=== PATIENT | male | born 1975 | race Caucasian/White ===

== ENCOUNTER 2020-08-29 11:30 | Day surgery (SDC) | payer OTHER ==
--- NOTE | 2020-08-27 15:36 | RAD REPORT ---
EXAM DESCRIPTION: Justo Kim (2 Views)08/27/2020 3:18 pm CLINICAL HISTORY: Preop for cholecystectomy. Abdominal pain COMPARISON: None FINDINGS: The lungs appear clear of acute infiltrate. The heart is probably upper limits normal siz e IMPRESSION: No acute abnormalities displayed
[2020-08-27 15:42] LABS: Absolute Lymphocytes (CBC) 1.7 K/uL (0.7-4.9); Basophils % 0.7 % (0-1.3); Hematocrit 35.2 % (39.6-49.0); Lymphocytes % 27.9 % (15.3-44.8); MPV 7.4 fL (7.6-11.3)
[2020-08-27 16:09] LABS: ALT/SGPT 25 U/L (12-78); AST/SGOT 20 U/L (15-37); Albumin 3.9 g/dL (3.4-5.0); Alkaline Phosphatase 84 U/L (45-117); Amylase 80 U/L (25-115); BUN Blood Urea Nitrogen 16 mg/dL (7-18); Bicarbonate 30 mmol/L (21-32); Bilirubin Direct 0.2 mg/dL (0-0.2); Bilirubin Total 0.8 mg/dL (0.2-1.0); Glucose Level 92 mg/dL (74-106); Lipase 102 U/L (73-393); Potassium 3.8 mmol/L (3.5-5.1); Sodium Level 140 mmol/L (136-145)
[2020-08-27 16:34] LABS: Blood Morphology Comment NOTED (NOT SEEN); Hypochromasia 1+; Platelet Estimate ADEQ; White Blood Cell Scan OK (OK)
--- NOTE | 2020-08-28 07:06 | EKG ---
Test Date: 2020-08-27 Test Time: 14:56:39 Senior Controls Engineer: [place] MEASUREMENT RESULTS: Intervals: Rate: 42 VA: 162 QRSD: 112 QT: 482 QTc: 402 [place]: P: 30 VA: 162 QRS: 33 T: 19 INTERPRETIVE STATEMENTS: Marked sinus bradycardia Abnormal ECG No previous ECG available for comparison Electronically Signed On 08-28-20 07:03:55 CDT by Rios Berumen
[2020-08-29] MEDS ORDERED: Ringers Lactate 1,000 ML IV ONE (11:55)
--- OUTSIDE RECORDS SUMMARY | 2020-08-29 11:56 | XMS REPORT | Continuity of Care Document ---
:1975 Author Organization [facility] [employer]eng [employer] Care Team Providers Name Role Phone [facility] [employer] Information [employer] [facility] Unavailable Un available Problems Problem Status Onset Classification Date Comments Sourc e Date Reported 60429, EPIGASTRIC Active 08/14/20 [facility] PAIN 19 City [address] E66.01 K28.9 Active 08/14/20 [facility] K21.9 19 City Other 10/27/20 05/09/2019 [facility] postprocedural 18 City complications and disorders of digestive system 14454, GASTRIC Active 09/22/20 [facility] morial ULCER 18 City ACUTE GASTRIC Active 08/17/20 [facility] orial ULCER WITH 18 City HEMORRHAGE Z98.84 - BARIATRIC Active 08/04/20 [facility] OPID SURGERY STATUS 17 Kate and R10.9 98516- MORBID Active 10/13/20 [facility] orial OBESITY 16 [place] [address], E66.01 Active 05/28/[address] [facility] MORBID OBESITY 16 [place] Morbid obesity Active Problem 05/07/2020 [facility] edical (disorder) Group,[facility] Neck pain Active Problem 05/07/2020 Medica l (finding) Group,[facility] Sleep apnea Active Problem 05/07/2020 Medi ahsan (finding) Group,[facility] Gastrojejunal 05/09/2019 [facility] morial ulcer, unspecified C ity as acute or chronic, without hemorrhage or perforation Gastro-esophageal 05/09/2019 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 Amoxicillin Notes: (Same Inactive as: Amoxil) 2018 [facility] Clarithromycin Notes: (Same Inactive As: Biaxin) 2018 [facility] Acetaminophen Notes: Do not Inactive exceed 4 2019 [facility] gm/day. (Same City as: Tylenol) Protonix Notes: For IV Inactive push 2018 [facility] with 10 ml 0.9% sodium chloride and push over 2 minutes. (Same as: Protonix) Ofirmev Notes: Infuse No Longer over 15 Active 2018 [facility] minutes Do City not exceed 4gm/day of acetaminophen MEDICATION WASTE Product Size: 1000 mg Product Wasted: ___ mg Lovenox Notes: (Same No Longer as: Lovenox) Active 2018 [facility] Ketorolac 4 days No Longer MEDICATION Active 2018 [facility] WASTE [facility] Product Size: 30 mg Product Wasted: ___ mg 72 HR Scopolamine Notes: Change No Longer 0.0139 MG/HR patch every 72 Active 2018 [facility] Transdermal Patch hours (Same City as: Transderm-Scop ) ondansetron (ANES) Route: IV, Inactive H Drug form: 2018 [facility] INJ, ONCE, [facility] Stop date: 10/09/19 9:27:00 [employer] neostigmine (ANES) Route: IV, Inactive M H Drug form: 2018 [facility] INJ, ONCE, [facility] Stop date: 10/09/19 9:27:00 [employer] sucralfate 1 g oral 1 gm = 1 tab, Active tablet PO, Before 2018 [facility] Meals & [facility] Bedtime, crush and mix with 5-10mL water, # 56 tab, 0 Refill(s) clarithromycin 500 500 mg, PO, Active H mg oral tablet [id number], X [address] [facility] orial day, # 28 tab, City 0 Refill(s) amoxicillin 500 mg 1,000 mg, PO, Active oral capsule Q12H, X 14 2018 [facility] day, # 56 tab, City 0 Refill(s) tramadol 50 mg, PO, No Longer hydrochloride 50 MG Q4H, PRN Pain Active 2018 [facility] Oral Tablet Score 4-6, X 3 City day, # 18 tab, 0 Refill(s) omeprazole 40 mg 40 mg = 1 cap, Active oral delayed PO, Daily, # 2019 [facility] release capsule 30 cap, 1 City Refill(s) Calcium Chloride 1,000 mL, No Longer 0.0014 MEQ/ML / Rate: 150 Active 2018 [facility] Potassium Chloride ml/hr, Infuse City 0.004 MEQ/ML / over: 6.7 hr, Sodium Chloride Route: IV, 0.103 MEQ/ML / Dosing Weight Sodium Lactate 127.273 kg, 0.028 MEQ/ML Total Volume: Injectable Solution 1,000, Start date: 10/09/19 9:21:00 [employer], Duration: 30 day, Stop date: 11/08/19 9:20:00 [employer], 2.64, m2, 0 tramadol Notes: Not to No Longer hydrochloride 50 MG exceed Active 2018 [facility] Oral Tablet 400mg/day. City (Same As: Ultram) Dilaudid Notes: Same as No Longer Dilaudid Active 2018 [facility] Labetalol Notes: (Same No Longer as: Normodyne, Active 2018 [facility] Trandate) Push City over 2 minutes Give bolus over 2-3 minutes. Hydralazine Notes: (Same No Longer as: Active 2018 [facility] Apresoline) [facility] Push over 5 minutes Ondansetron Notes: (Same No Longer as: Zofran) Active 2018 [facility] MEDICATION City WASTE Product Size: 4 mg Product Wasted: ___ mg Promethazine 12.5 mg, 50 No Longer mL, Route: Active 2018 [facility] IVPB, Drug City form: SOLN, Q6H, Dosing Weight 127.273, kg, PRN Nausea & Vomiting, Start date: 10/09/19 9:21:00 [employer], Duration: 30 day, Stop date: 11/08/19 9:20:00 [employer], 0 ePHEDrine (ANES) Route: IV, Inactive Drug form: 2019 [facility] INJ, ONCE, City Stop date: 10/09/19 9:01:00 [employer] glycopyrrolate Route: IV, Inactive (ANES) Drug form: 2018 [facility] INJ, ONCE, City Stop date: 10/09/19 8:36:00 [employer] ceFAZolin (ANES) Route: IV, Inactive Drug form: 2018 [facility] INJ, ONCE, City Stop date: 10/09/19 8:25:00 [employer] dexamethasone Route: IV, Inactive (ANES) Drug form: 2018 [facility] INJ, ONCE, City Stop date: 10/09/19 8:25:00 [employer] acetaminophen Route: IV, Inactive (ANES) Drug form: 2018 [facility] INJ, ONCE, City Stop date: 10/09/19 8:25:00 [employer] midazolam (ANES) Route: IV, Inactive Drug form: 2018 [facility] SOLN, RIGO, City Stop date: 10/09/19 8:20:00 [employer] fentaNYL (ANES) Route: IV, Inactive Drug form: 2018 [facility] INJ, ONCE, City Stop date: 10/09/19 8:20:00 [employer] lidocaine (ANES) Route: IV, Inactive Drug form: 2018 [facility] INJ, ONCE, City Stop date: 10/09/19 8:20:00 [employer] propofol (ANES) Route: IV, Inactive Drug form: 2018 [facility] INJ, ONCE, City Stop date: 10/09/19 8:20:00 [employer] rocuronium (ANES) Route: IV, Inactive Drug form: 2018 [facility] INJ, ONCE, City Stop date: 10/09/19 8:20:00 [employer] famotidine (ANES) Route: IV, Inactive Drug form: 2018 [facility] INJ, ONCE, City Stop date: 10/09/19 8:20:00 [employer] Morphine Notes: (Same Inactive as:MORPhine 2018 [facility] Flumazenil Notes: (Same Inactive as: Romazicon) 2018 [facility] Naloxone Notes: Same as Inactive Narcan 2018 [facility] Ondansetron Notes: (Same Inactive as: Zofran) 2018 [facility] MEDICATION City WASTE Product Size: 4 mg Product Wasted: ___ mg Lactated Ringers Route: IV, Inactive Injection IV (ANES) Total Volume: 2018 [facility] 1000 mL 1,000, Start City date: 10/09/19 7:35:00 [employer], Stop date: 10/09/19 8:35:00 [employer] ceFAZolin + sterile Notes: (Same No Longer 10/09 water 30 mL As: Ancef, Active 2018 [facility] Kefzol) [facility] MEDICATION WASTE Product Size: 1000 mg Product Wasted: ___ mg multivitamin Daily, 0 No Longer Refill(s) Active 2019 [facility] Stool Softener with PO, Bedtime, 0 Active 10/02 Laxative Refill(s) 2019 [facility] Vitamin B Complex PO, Daily, 0 No Longer oral capsule Refill(s) Active 2018 [facility] Calcium Citrate PO, BID, 0 No Longer Refill(s) Active 2018 [facility] Sucralfate = 10 ml, PO, No Longer Before Meals & Active 2018 [facility] Bedtime, # 200 City ml, 0 Refill(s) Cetirizine See Active Instructions, 2017 [facility] Daily, 0 City Refill(s) Azithromycin See Active Instructions, 2018 [facility] PO Daily, 0 City Refill(s) MethylPREDNISolone See Active Dose Pack 4 mg oral Instructions, 2018 [facility] tablet PO, Daily, Use [facility] as directed on label., # 1 Pack, 0 Refill(s) Nexium See Active Instructions, 2018 [facility] PO Daily, 0 City Refill(s) benzonatate See Active Instructions, 2018 [facility] PO TID, 0 City Refill(s) tramadol 50 mg = 1 tab, Active hydrochloride 50 MG PO, Q4H, PRN 2016 [facility] Oral Tablet Pain Score [facility] 1-3, X 7 day, # 42 tab, 0 Refill(s) tramadol Notes: Not to Inactive hydrochloride 50 MG exceed 2016 [facility] Oral Tablet 400mg/day. City (Same As: [facility]) Enoxaparin Notes: (Same Inactive as: Lovenox) 2015 [facility] Ketorolac 4 days No Longer MEDICATION Active 2015 [facility] WASTE City Product Size: 30 mg Product Wasted: ___ mg ondansetron (ANES) Route: IV, Inactive H Drug form: 2015 [facility] INJ, ONCE, City Stop date: 10/26/16 17:00:00 [employer] neostigmine (ANES) Route: IV, Inactive H Drug form: 2015 [facility] INJ, ONCE, City Stop date: 10/26/16 17:00:00 [employer] Dilaudid Notes: Same as No Longer Dilaudid Active 2015 [facility] Ondansetron Notes: (Same No Longer as: Zofran) Active 2015 [facility] MEDICATION City WASTE Product Size: 4 mg Product Wasted: ___ mg Promethazine 12.5 mg, 50 No Longer mL, Route: Active 2015 [facility] IVPB, Drug City form: SOLN, Q4H, Dosing Weight 176.364, kg, PRN Nausea & Vomiting, Start date: 10/26/16 16:34:00 [employer], Duration: 30 day, Stop date: 11/25/16 16:33:00 [employer] Lactated Ringers 1,000 mL, No Longer 1,000 mL Rate: 80 Active 2015 [facility] over: 12.5 hr, Route: IV, Dosing Weight 176.364 kg, Total Volume: 1,000, Priority: STAT, Start date: 10/26/16 16:34:00 [employer], Duration: 30 day, Stop date: 11/25/16 16:33:00 [employer] Calcium Chloride 1,000 mL, No Longer 0.0014 MEQ/ML / Rate: 125 Active 2015 [facility] Potassium Chloride ml/hr, Infuse [facility] 0.004 MEQ/ML / over: 8 hr, Sodium Chloride Route: IV, 0.103 MEQ/ML / Dosing Weight Sodium Lactate 176.364 kg, 0.028 MEQ/ML Total Volume: Injectable Solution 1,000, Start date: 10/26/16 16:34:00 [employer], Stop date: 10/27/16 16:33:00 [employer] metoclopramide Route: IV, Inactive (ANES) Drug form: 2015 [facility] INJ, ONCE, City Stop date: 10/26/16 16:22:00 [employer] famotidine (ANES) Route: IV, Inactive Drug form: 2015 [facility] INJ, ONCE, City Stop date: 10/26/16 16:22:00 [employer] propofol (ANES) Route: IV, Inactive Drug form: 2015 [facility] INJ, ONCE, City Stop date: 10/26/16 15:27:00 [employer] glycopyrrolate Route: IV, Inactive (ANES) Drug form: 2015 [facility] INJ, ONCE, City Stop date: 10/26/16 15:27:00 [employer] fentaNYL (ANES) Route: IV, Inactive Drug form: 2015 [facility] INJ, ONCE, City Stop date: 10/26/16 15:27:00 [employer] lidocaine (ANES) Route: IV, Inactive Drug form: 2015 [facility] INJ, ONCE, City Stop date: 10/26/16 15:27:00 [employer] succinylcholine Route: IV, Inactive (ANES) Drug form: 2015 [facility] INJ, ONCE, City Stop date: 10/26/16 15:27:00 [employer] ENG[employer] ceFAZolin (ANES) Route: IV, Inactive Drug form: 2015 [facility] INJ, ONCE, City Stop date: 10/26/16 15:17:00 [employer] rocuronium (ANES) Route: IV, Inactive Drug form: 2015 [facility] INJ, ONCE, City Stop date: 10/26/16 15:17:00 [employer] midazolam (ANES) Route: IV, Inactive Drug form: 2015 [facility] SOLN, ONCE, City Stop date: 10/26/16 15:07:00 [employer] Meperidine Notes: (Same Inactive As: Demerol) 2015 [facility] Ondansetron Notes: (Same Inactive as: Zofran) 2015 [facility] MEDICATION City WASTE Product Size: 4 mg Product Wasted: ___ mg Promethazine Notes: Do not Inactive 10/26[facility] give IV push. 2015 [facility] (Same as: [facility] Phenergan) Naloxone Notes: Same as Inactive Narcan 2015 [facility] Flumazenil Notes: (Same Inactive as: Romazicon) 2015 [facility] Morphine Notes: (Same Inactive as:MORPhine 2015 [facility] Sulfate) [facility] Hydromorphone Notes: Same as Inactive Dilaudid 2015 [facility] Hydralazine Notes: (Same Inactive as: 2015 [facility] Apresoline) [facility] Push over 5 minutes Labetalol Notes: (Same Inactive as: Normodyne, 2015 [facility] Trandate) Push [facility] over 2 minutes Give bolus over 2-3 minutes. 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 1000 mL INJ Route: IV, Inactive (ANES) Total Volume: 2015 [facility] 1,000, Start [facility] date: 10/26/16 14:32:00 [employer] SYSTEM[employer]ER, Stop date: 10/26/16 15:32:00 [employer] Ancef Notes: Same No Longer as: Ancef Active 2015 [facility] lisinopril 5 mg 5 mg = 1 tab, Active oral tablet PO, Daily, # 2016 [facility] 30 tab, 2 [facility] Refill(s) Aspirin 81 MG 81 mg = 1 tab, Active Enteric Coated PO, Daily, # 2016 [facility] Tablet 30 tab, 2 [facility] Refill(s) Aspirin 81 MG Notes: Do not Inactive Enteric Coated crush or chew. 2016 Me morial Tablet (Same As: [facility] Ecotrin) Lasix Notes: (Same Inactive as: Lasix) 2015 [facility] Dulcolax Laxative 5 mg, 1 tab, No Longer Route: PO, Active 2015 [facility] Drug form: [facility] ECTAB, Q6H, Dosing Weight 183.182, kg, PRN Constipation, Start date: 06/24/16 20:00:00 CDT, Duration: 30 day, Stop date: 07/24/16 19:59:00 CDT Milk of Magnesia Notes: (Same No Longer as: Milk of Active 2015 [facility] Magnesia, MOM) [facility] Lisinopril Notes: (Same No Longer as: Prinivil, Active 2015 [facility] Zestril) [facility] Acetaminophen Notes: Do not No Longer exceed 4 Active 2015 [facility] gm/day. (Same City as: Tylenol) acetaminophen-codei Notes: Do not No Longer 06/14 ne #3 exceed 4gm/day Active 2015 [facility] acetaminophen. (Same as: Tylenol with Codeine # 3) Calcium Gluconate Notes: WASTE: No Longer F/P - Sink; E Active 2015 [facility] Trash Bin potassium phosphate Notes: (Same No Longer 06/24 + sodium chloride as: K [facility] [address] [facility] [address] 250 mL Phosphate.) 1 C ity mMol phoshate has 1.47 mEq potassium Infuse over 4 hours potassium chloride Notes: (Same No Longer as: Potassium Active 2015 [facility] Chloride) [facility] potassium Notes: (Same No Longer phosphate-sodium as: [facility] [address] [facility] 250 Neutra-Phos) [facility] mg-278 mg-164 mg Each 1.25 gm oral powder pkt has 250mg phosphorous. Mix w/2.5oz water and stir. sodium phosphate + 30 mmol, 10 No Longer sodium chloride mL, Route: Active [address] [facility] 0.9% INJ 250 mL IVPB, PRN, [facility] Dosing Weight 183.182, kg, PRN Abnormal Lab Result, For NON-ICU Patients Only., Start date: 06/24/16 4:15:00 CDT, Duration: 30 day, Stop date: 07/24/16 4:14:00 CDT Magnesium Sulfate Notes: WASTE: No Longer F/P - Sink; E Active 2015 [facility] Magnesium Oxide Notes: (Same No Longer H as: Mag-Ox Active 2015 [facility] 400) Magnesium City oxide [id number] elemental magnesium Dose=____mg magnesium oxide (___mg elemental magnesium) heparin Notes: porcine No Longer heparin Active 2015 [facility] Notes: Infuse No Longer over 15 Active 2015 [facility] minutes Do City not exceed 4gm/day of acetaminophen MEDICATION WASTE Product Size: 1000 mg Product Wasted: ___ mg Zofran Notes: (Same No Longer as: Zofran) Active 2015 [facility] MEDICATION City WASTE Product Size: 4 mg Product Wasted: ___ mg Ondansetron Notes: (Same No Longer as: Zofran) Active 2015 [facility] MEDICATION City WASTE Product Size: 4 mg Product Wasted: ___ mg Promethazine Notes: Do not No Longer give IV push. Active 2015 [facility] (Same as: [facility] Phenerg) Calcium Chloride 1,000 mL, No Longer 0.0014 MEQ/ML / Rate: 125 Active 2015 [facility] al Potassium Chloride ml/hr, Infuse [facility] 0.004 MEQ/ML / over: 8 hr, Sodium Chloride Route: IV, 0.103 MEQ/ML / Dosing Weight Sodium Lactate 183.182 kg, 0.028 MEQ/ML Total Volume: Injectable Solution 1,000, Start date: 06/23/16 12:02:00 CDT, Stop date: 06/24/16 6:00:00 CDT Sodium Chloride 2,000 mL, Inactive 0.154 MEQ/ML 1,000 ml/hr, 2015 [facility] Injectable Solution Infuse Over: 2 City hr, Route: IV, 2,000, Drug form: INJ, ONCE, Priority: STAT, Dosing Weight 183.182 kg, Start date: 06/23/16 10:26:00 CDT, Duration: 1 doses or times, Stop date: 06/23/16 10:26:00 CDT chlorhexidine Notes: (Same Inactive gluconate 1.2 MG/ML As: Peridex) 2015 [facility] [place] [facility] Lactated Ringers 1,000 mL, No Longer 1,000 mL Rate: 125 Active 2015 [facility] ml/hr, Infuse [facility] over: 8 hr, Route: IV, Dosing Weight 183.182 kg, Total Volume: 1,000, Start date: 06/23/16 8:27:00 CDT, Duration: 30 day, Stop date: 07/23/16 8:26:00 CDT chlorhexidine Notes: (Same Inactive gluconate 1.2 MG/ML As: Peridex) 2015 [facility] [place] [facility] Ancef Notes: Same No Longer as: Ancef Active 2015 [facility] carBAMazepine 200 200 mg = 1 Active 06[facility]09[facility] mg oral tablet tab, PO, 2015 [facility] Daily, 0 [facility] Refill(s) tramadol 50 mg = 1 tab, Active hydrochloride 50 MG PO, Q8H, PRN 2015 [facility] Oral Tablet Pain, # 60 [facility] tab, 0 Refill(s) baclofen 10 mg oral 10 mg = 1 tab, Active 06/09 tablet PO, BID, 0 2015 [facility] Refill(s) [facility] Allergies, Adverse Reactions, Alerts Substance Category Reaction Severity Reaction Status Date Comments S ource type Reported No Known Assertion Drug Medication allergy Medic al Allergies Group Immunizations No Data Provided for This Section Results Order Name Results Value Reference Date Interpretation Comments Shira rce Range CHEM PANEL Glucose Lvl 88 70 - 99 10/10 [facility] CHEM PANEL BUN 11 7 - 22 10/10 [facility] CHEM PANEL Creatinine 0.92 0.50 - 10/10 Lvl 1.40 [facility] CHEM PANEL Sodium Lvl 141 135 - 145 10/10 [facility] CHEM PANEL Potassium 3.8 3.5 - 5.1 10/10 Lvl [facility] CHEM PANEL Chloride Lvl 106 95 - 109 10/10 [facility] CHEM PANEL CO2 27 24 - 32 10/10 [facility] CHEM PANEL Calcium Lvl 8.3 8.5 - 10.5 10/10 [facility] CHEM PANEL eGFR 101 10/10 Result Comment: The [facility] eGFR is City calculated using the CKD-EPI formula. In most young, healthy individuals the eGFR will be >90 mL/min/1.73m2 . The eGFR declines with age. An eGFR of 60-89 may be normal in some populations, particularly the elderly, for whom the CKD-EPI formula has not been extensively validated. Use of the eGFR is not recommended in the following populations:< br/>
Yuliana viduals with unstable creatinine concentration s, including patients and those with serious co-morbid conditions.<b r/>
Patie nts with extremes in muscle mass or diet.

The data above are obtained from the National Kidney Disease Education Program (NKDEP) which additionally recommends that when the eGFR is used in patients with extremes of body mass index for purposes of drug dosing, the eGFR should be multiplied by the estimated BMI. CHEM PANEL AGAP 11.8 10.0 - 10/10 MH 20.0 [facility] HEMATOLOGY Plt Morph Normal Normal 10/10 (10/10/19 6:29 AM) /2018 [facility] HEMATOLOGY Segs 68.8 45.0 - 10/10 75.0 /2018 [facility] HEMATOLOGY Lymphocytes 19.8 20.0 - 10/10 MH 40.0 [facility] HEMATOLOGY Monocytes 10.3 2.0 - 12.0 10/10 [facility] HEMATOLOGY Eosinophils 0.8 0.0 - 4.0 10/10 [facility] HEMATOLOGY Basophils 0.3 0.0 - 1.0 10/10 [facility] HEMATOLOGY Neutrophils 5.2 1.5 - 8.1 10/10 # /2018 [facility] HEMATOLOGY Lymphocytes 1.5 1.0 - 5.5 10/10 # /2018 [facility] HEMATOLOGY Monocytes # 0.8 0.0 - 0.8 10/10 [facility] HEMATOLOGY Eosinophils 0.1 0.0 - 0.5 10/10 # /2018 [facility] HEMATOLOGY Microcyte 3+ None Seen 10/10 *NA* /2018 [facility] (10/10/19 6:29 AM) [facility] HEMATOLOGY Hypochrom 1+ None Seen 10/10 (10/10/19 6:29 AM) [facility] HEMATOLOGY Polychrom Moderate None Seen 10/10 *ABN* /2018 [facility] (10/10/19 6:29 AM) [facility] HEMATOLOGY WBC 7.6 3.7 - 10.4 10/10 [facility] HEMATOLOGY RBC 4.76 4.70 - 10/10 MH 6. [facility] HEMATOLOGY Hgb 9.3 14.0 - 10/10 18.0 /2018 [facility] [facility] HEMATOLOGY Hct 29.6 42.0 - 10/10 MH 54.0 /2018 [facility] HEMATOLOGY MCV 62.2 80.0 - 10/10 94.0 /2018 [facility] HEMATOLOGY MCH 19.6 27.0 - 10/10 MH 31.0 /2018 [facility] HEMATOLOGY MCHC 31.5 32.0 - 10/10 36.0 /2018 [facility] HEMATOLOGY RDW 19.7 11.5 - 10/10 14.5 [facility] HEMATOLOGY Platelet 233 133 - 450 10/10 /2018 [facility] HEMATOLOGY MPV 8.4 7.4 - 10.4 10/10 [facility] URINE AND UA Color Yellow Yellow 10/02 STOOL *NA* /2018 [facility] (10/02/19 4:44 PM) [facility] URINE AND UA Turbidity Clear Clear 10/02 STOOL (10/02/19 4:44 PM) /2018 [facility] URINE AND UA Spec Grav 1.020 <=1.030 10/02 STOOL [facility] URINE AND UA pH 6.0 5.0 - 8.0 10/02 STOOL /2018 [facility] URINE AND UA Protein Negative Negative 10/02 STOOL mg/dL mg/dL /2018 [facility] URINE AND UA Glucose Negative Negative 10/02 STOOL mg/dL mg/dL /2018 [facility] URINE AND UA Bili Negative Negative 10/02 STOOL *NA* /2018 [facility] (10/02/19 4:44 PM) [facility] URINE AND UA Blood Negative Negative 10/02 STOOL (10/02/19 4:44 PM) /2018 [facility] URINE AND UA Nitrite Negative Negative 10/02 STOOL (10/02/19 4:44 PM) /2018 [facility] URINE AND UA Leuk Est Negative Negative 10/02 STOOL (10/02/19 4:44 PM) /[facility] WBC 1 0 - 5 10/02 STOOL [facility] URINE AND UA RBC <1 0 - 2 10/02 STOOL [facility] URINE AND UA Bacteria Occasional None Seen 10/02 STOOL /HPF /HPF /2018 [facility] URINE AND UA Mucus Few /LPF None Seen 10/02 STOOL /LPF /2018 [facility] URINE AND UA Sq Epi None Seen 10/02 STOOL /2018 [facility] URINE AND UA Ketones Negative 10/02 STOOL [facility] URINE AND UA <=1.0 0.1 - 1.0 10/02 STOOL Urobilinogen mg/dL [facility] BLOOD BANK ABO/Rh O POS 10/02 RESULTS [facility] BLOOD BANK Antibody Negative 10/02 RESULTS Scrn (10/02/19 4:39 PM) [facility] CHEM PANEL Glucose Lvl 69 70 - 99 10/02 [facility] CHEM PANEL BUN 18 7 - 22 10/02 [facility] CHEM PANEL Creatinine 0.95 0.50 - 10/02 Lvl 1.40 [facility] CHEM PANEL Sodium Lvl 143 135 - 145 10/02 [facility] CHEM PANEL Potassium 4.6 3.5 - 5.1 10/02 Lvl [facility] CHEM PANEL Chloride Lvl 107 95 - 109 10/02 [facility] CHEM PANEL CO2 31 24 - 32 10/02 [facility] CHEM PANEL Calcium Lvl 9.0 8.5 - 10.5 10/02 [facility] CHEM PANEL Albumin Lvl 4.1 3.5 - 5.0 10/02 [facility] CHEM PANEL AST 17 0 - 37 10/02 [facility] CHEM PANEL eGFR 97 10/02 [facility] Comment: [facility] eGFR is City calculated using the CKD-EPI formula. In most young, healthy individuals the eGFR will be >90 mL/min/1.73m2 . The eGFR declines with age. An eGFR of 60-89 may be normal in some populations, particularly the elderly, for whom the CKD-EPI formula has not been extensively validated. Use of the eGFR is not recommended in the following populations:< br/>
Yuliana viduals with unstable creatinine concentration s, including patients and those with serious co-morbid conditions.<b r/>
Patie nts with extremes in muscle mass or diet.

The data above are obtained from the National Kidney Disease Education Program (NKDEP) which additionally recommends that when the eGFR is used in patients with extremes of body mass index for purposes of drug dosing, the eGFR should be multiplied by the estimated BMI. CHEM PANEL Total 7.9 6.4 - 8.4 10/02 MH Protein [facility] CHEM PANEL ALT 23 0 - 65 10/02 [facility] CHEM PANEL Alk Phos 80 39 - 136 10/02 [facility] CHEM PANEL Bili Total 1.0 0.2 - 1.3 10/02 [facility] CHEM PANEL AGAP 9.6 10.0 - 10/02 MH 20.0 [facility] CHEM PANEL B/C Ratio 19 6 - 25 10/02 [facility] CHEM PANEL Globulin 3.8 2.7 - 4.2 10/02 [facility] CHEM PANEL A/G Ratio 1.1 0.7 - 1.6 10/02 [facility] CHEM PANEL Vit B1 Lvl 123.4 66.5 - 10/02 Result (Bariatric) 200.0 /2018 Comment: This Memori al test was City developed and its performance characteristi cs
determ ined by [facility]. It has not been cleared or
approv ed by the Food and Drug Administratio n.
Perfor med At: [facility] [place]
[id number], [place] [id number]<br/ >Carlos Rainey MD Ph:[phone] CHEM PANEL Vitamin D, 31.1 30.0 - 10/02 25-OH, Total 100.0 [facility] HEMATOLOGY WBC 5.4 3.7 - 10.4 10/02 [facility] HEMATOLOGY RBC 5.50 4.70 - 10/02 MH 6.10 [facility] HEMATOLOGY Hgb 10.8 14.0 - 10/02 MH 18.0 [facility] HEMATOLOGY Hct 34.7 42.0 - 10/02 MH 54.0 [facility] HEMATOLOGY MCV 63.2 80.0 - 10/02 MH 94.0 [facility] HEMATOLOGY MCH 19.7 27.0 - 10/02 MH 31.0 [facility] HEMATOLOGY MCHC 31.2 32.0 - 10/02 MH 36.0 [facility] HEMATOLOGY RDW 21.0 11.5 - 10/02 MH 14.5 [facility] HEMATOLOGY Platelet 340 133 - 450 10/02 [facility] HEMATOLOGY MPV 8.4 7.4 - 10.4 10/02 [facility] HEMATOLOGY PT 13.0 12.0 - 10/02 MH 14.7 /2018 [facility] HEMATOLOGY PTT 33.9 22.9 - 10/02 MH 35.8 /2018 [facility] HEMATOLOGY INR 1.00 0.85 - 10/02 MH 1.17 /2018 [facility] HEMATOLOGY Segs 61.2 45.0 - 10/02 MH 75.0 /2018 [facility] HEMATOLOGY Lymphocytes 22.6 20.0 - 10/02 MH 40.0 /2018 [facility] HEMATOLOGY Monocytes 10.3 2.0 - 12.0 10/02 /2018 [facility] HEMATOLOGY Eosinophils 4.8 0.0 - 4.0 10/02 [facility] HEMATOLOGY Basophils 1.1 0.0 - 1.0 10/02 [facility] HEMATOLOGY Neutrophils 3.3 1.5 - 8.1 10/02 # /2018 [facility] HEMATOLOGY Lymphocytes 1.2 1.0 - 5.5 10/02 /2018 [facility] HEMATOLOGY Monocytes # 0.6 0.0 - 0.8 10/02 [facility] HEMATOLOGY Eosinophils 0.3 0.0 - 0.5 10/02 # /2019 [facility] HEMATOLOGY Basophils # 0.1 0.0 - 0.2 10/02 [facility] HEMATOLOGY Anisocyte 1+ None Seen 10/02 *ABN* /2018 [facility] (10/02/19 4:39 PM) [facility] HEMATOLOGY Microcyte 2+ None Seen 10/02 *ABN* /2018 [facility] (10/02/19 4:39 PM) [facility] HEMATOLOGY Hypochrom 1+ None Seen 10/02 (10/02/19 4:39 PM) [facility] HEMATOLOGY Schistocyte 1-3 per HPF None Seen 10/02 (10/02/19 4:39 PM) /2018 [facility] CHEM PANEL eGFR 89 10/27 Result Comment: [facility] eGFR is City calculated using the CKD-EPI formula. In most young, healthy individuals the eGFR will be >90 mL/min/1.73m2 . The eGFR declines with age. An eGFR of 60-89 may be normal in some populations, particularly the elderly, for whom the CKD-EPI formula has not been extensively validated. Use of the eGFR is not recommended in the following populations:< br/>
Yuliana viduals with unstable creatinine concentration s, including patients and those with serious co-morbid conditions.<b r/>
Patie nts with extremes in muscle mass or diet.

The data above are obtained from the National Kidney Disease Education Program (NKDEP) which additionally recommends that when the eGFR is used in patients with extremes of body mass index for purposes of drug dosing, the eGFR should be multiplied by the estimated BMI. CHEM PANEL AGAP 16.2 10.0 - 12 MH 20.0 [facility] CHEM PANEL CO2 26 24 - 32 12 [facility] CHEM PANEL Creatinine 1.03 0.50 - 10/27 MH Lvl 1.40 /2015 [facility] CHEM PANEL BUN 11 7 - 22 10/27 [facility] CHEM PANEL Glucose Lvl 116 70 - 99 10/27 [facility] CHEM PANEL Calcium Lvl 8.4 8.5 - 10.5 10/27 [facility] CHEM PANEL Chloride Lvl 102 95 - 109 10/27 [facility] CHEM PANEL Potassium 4.2 3.5 - 5.1 10/27 MH Lvl /2015 [facility] CHEM PANEL Sodium Lvl 140 135 - 145 10/27 [facility] HEMATOLOGY Platelet 237 133 - 450 10/27 [facility] HEMATOLOGY MPV 7.1 7.4 - 10.4 10/27 [facility] HEMATOLOGY RDW 13.2 11.5 - 10/27 MH 14.5 [facility] HEMATOLOGY MCHC 34.0 32.0 - 10/27 MH 36.0 [facility] HEMATOLOGY Hct 40.6 42.0 - 10/27 MH 54.0 [facility] HEMATOLOGY Hgb 13.8 14.0 - 10/27 MH 18.0 [facility] HEMATOLOGY MCH 28.3 27.0 - 10/27 MH 31.0 /2015 [facility] HEMATOLOGY MCV 83.2 80.0 - 10/27 MH 94.0 [facility] HEMATOLOGY WBC 10.9 3.7 - 10.4 10/27 [facility] HEMATOLOGY RBC 4.88 4.70 - 10/27 MH 6.10 /2015 [facility] HEMATOLOGY PTT 30.7 22.9 - 10/27 MH 35.8 /2015 [facility] HEMATOLOGY PT 14.9 12.0 - 10/27 MH 14.7 [facility] HEMATOLOGY INR 1.15 0.85 - 12 MH 1.17 /2015 [facility] HEMATOLOGY Lymphocytes 0.7 1.0 - 5.5 10/27 MH # /2016 [facility] HEMATOLOGY Segs-Bands # 9.6 1.5 - 8.1 10/27 MH /2015 [facility] HEMATOLOGY Monocytes # 0.5 0.0 - 0.8 10/27 MH /2015 [facility] HEMATOLOGY Segs 88.8 45.0 - 10/27 MH 75.0 /2016 [facility] HEMATOLOGY Lymphocytes 6.9 20.0 - 10/27 MH 40.0 /2016 [facility] HEMATOLOGY Monocytes 4.1 2.0 - 12.0 10/27 /2015 [facility] HEMATOLOGY Basophils 0.2 0.0 - 1.0 10/27 /2015 [facility] BLOOD BANK Antibody Negative 10/26 RESULTS Scrn (10/26/16 1:18 PM) /2015 [facility] BLOOD BANK ABO/Rh O POS 10/26 RESULTS /2015 [facility] CHEM PANEL eGFR 82 10/26 Result Comment: [facility] eGFR is City calculated using the CKD-EPI formula. In most young, healthy individuals the eGFR will be >90 mL/min/1.73m2 . The eGFR declines with age. An eGFR of 60-89 may be normal in some populations, particularly the elderly, for whom the CKD-EPI formula has not been extensively validated. Use of the eGFR is not recommended in the following populations:< br/>
Yuliana viduals with unstable creatinine concentration s, including patients and those with serious co-morbid conditions.<b r/>
Patie nts with extremes in muscle mass or diet.

The data above are obtained from the National Kidney Disease Education Program (NKDEP) which additionally recommends that when the eGFR is used in patients with extremes of body mass index for purposes of drug dosing, the eGFR should be multiplied by the estimated BMI. CHEM PANEL AST 33 0 - 37 10/26 /2015 [facility] CHEM PANEL Creatinine 1.10 0.50 - 10/26 MH Lvl 1.40 /2015 [facility] CHEM PANEL ALT 52 0 - 65 10/26 [facility] CHEM PANEL CO2 21 24 - 32 10/26 [facility] CHEM PANEL Glucose Lvl 76 70 - 99 10/26 [facility] CHEM PANEL BUN 12 7 - 22 10/26 [facility] CHEM PANEL Potassium 4.2 3.5 - 5.1 10/26 MH Lvl /2015 [facility] CHEM PANEL Sodium Lvl 137 135 - 145 10/26 [facility] CHEM PANEL Albumin Lvl 4.0 3.5 - 5.0 10/26 [facility] CHEM PANEL Calcium Lvl 9.1 8.5 - 10.5 10/26 [facility] CHEM PANEL Chloride Lvl 104 95 - 109 10/26 [facility] CHEM PANEL Alk Phos 54 39 - 136 10/26 [facility] CHEM PANEL Bili Total 1.5 0.2 - 1.3 10/26 [facility] CHEM PANEL Total 7.8 6.4 - 8.4 10/26 [facility] CHEM PANEL B/C Ratio 11 6 - 25 10/26 [facility] CHEM PANEL AGAP 16.2 10.0 - 10/26 MH 20.0 [facility] CHEM PANEL A/G Ratio 1.1 0.7 - 1.6 10/26 [facility] CHEM PANEL Globulin 3.8 2.7 - 4.2 10/26 [facility] CHEM PANEL Vitamin D, 26 30 - 100 10/26 25-OH, /2015 [facility] HEMATOLOGY RBC 5.30 4.70 - 10/26 MH 6.10 /2015 [facility] HEMATOLOGY WBC 5.6 3.7 - 10.4 10/26 [facility] HEMATOLOGY MCH 28.2 27.0 - 10/26 MH 31.0 /2015 [facility] HEMATOLOGY MCV 83.6 80.0 - 10/26 94.0 /2015 [facility] HEMATOLOGY Hct 44.3 42.0 - 10/26 MH 54.0 /2015 [facility] HEMATOLOGY Hgb 14.9 14.0 - 10/26 MH 18.0 /2015 [facility] HEMATOLOGY RDW 13.5 11.5 - 10/26 MH 14.5 /2015 [facility] HEMATOLOGY MCHC 33.7 32.0 - 10/26 MH 36.0 /2015 [facility] HEMATOLOGY Platelet 235 133 - 450 10/26 [facility] HEMATOLOGY MPV 6.9 7.4 - 10.4 10/26 [facility] HEMATOLOGY INR 1.09 0.85 - 10/26 MH 1.17 /2016 [facility] HEMATOLOGY PT 14.3 12.0 - 12/ MH 14.7 /2016 [facility] HEMATOLOGY PTT 32.4 22.9 - 12/ MH 35.8 /2016 [facility] HEMATOLOGY Eosinophils 0.2 0.0 - 0.5 12/13 MH # /2016 [facility] HEMATOLOGY Lymphocytes 1.5 1.0 - 5.5 12/ MH # /2016 [facility] HEMATOLOGY Segs-Bands # 3.5 1.5 - 8.1 12/ MH /2015 [facility] HEMATOLOGY Basophils 0.9 0.0 - 1.0 12/ MH /2015 [facility] HEMATOLOGY Monocytes # 0.5 0.0 - 0.8 12/ MH /2015 [facility] HEMATOLOGY Monocytes 8.1 2.0 - 12.0 12/ MH /2015 [facility] HEMATOLOGY Eosinophils 2.8 0.0 - 4.0 / MH /2015 [facility] HEMATOLOGY Lymphocytes 26.5 20.0 - 12/ MH 40.0 /2015 [facility] HEMATOLOGY Segs 61.7 45.0 - 12/ MH 75.0 /2015 [facility] PARATHYROID PTH Intact 58.1 11.1 - 10/26 PROFILE 79.5 /2015 [facility] CHEM PANEL Magnesium 1.7 1.8 - 2.4 / Lvl /2015 [facility] CHEM PANEL Creatinine 1.15 0.50 - 06/25 Lvl 1.40 /2015 [facility] CHEM PANEL eGFR 78 08 Result Comment: [facility] eGFR is City calculated using the CKD-EPI formula. In most young, healthy individuals the eGFR will be >90 mL/min/1.73m2 . The eGFR declines with age. An eGFR of 60-89 may be normal in some populations, particularly the elderly, for whom the CKD-EPI formula has not been extensively validated. Use of the eGFR is not recommended in the following populations:< br/>
Yuliana viduals with unstable creatinine concentration s, including patients and those with serious co-morbid conditions.<b r/>
Patie nts with extremes in muscle mass or diet.

The data above are obtained from the National Kidney Disease Education Program (NKDEP) which additionally recommends that when the eGFR is used in patients with extremes of body mass index for purposes of drug dosing, the eGFR should be multiplied by the estimated BMI. CHEM PANEL AGAP 12.5 10.0 - 08/12 MH 20.0 /2016 [facility] CHEM PANEL Chloride Lvl 102 95 - 109 08/12 MH /2015 [facility] CHEM PANEL CO2 31 24 - 32 / MH /2015 [facility] CHEM PANEL Calcium Lvl 8.4 8.5 - 10.5 08/ MH /2016 [facility] CHEM PANEL Glucose Lvl 105 70 - 99 / MH /2015 [facility] CHEM PANEL BUN 7 7 - 22 / MH /2015 [facility] CHEM PANEL Sodium Lvl 142 135 - 145 08/ MH /2016 [facility] CHEM PANEL Potassium 3.5 3.5 - 5.1 08/ MH Lvl /2015 [facility] CARDIAC CK MB 6.1 0.5 - 3.6 / MH ENZYMES /2015 [facility] CARDIAC CK MB Index 2.8 0.0 - 2.5 06/24 MH ENZYMES /2016 [facility] CARDIAC Total CK 219 12 - 191 / MH ENZYMES /2016 [facility] CARDIAC Troponin-I 1.59 0.00 - 06/24 Result ENZYMES 0.40 /2016 Comment: [facility] Result(s) called to Cecilia Jolley at [phone] 06/24/2016 04:28 by gr. Read back OK. CARDIAC CK MB 7.3 0.5 - 3.6 06/24 MH ENZYMES /2015 [facility] CARDIAC Total CK 241 12 - 191 / MH ENZYMES /2016 [facility] CARDIAC CK MB Index 3.0 0.0 - 2.5 06/24 MH ENZYMES /2016 [facility] CARDIAC Troponin-I 2.15 0.00 - 06/24 Result ENZYMES 0.40 /2016 Comment: [facility] Result(s) called to Francisco at [phone] 06/24/2016 01:44 by gr. Read back OK. ELECTROLYTE AGAP 13.6 10.0 - 08/11 MH S 20.0 /2016 [facility] ELECTROLYTE Calcium Lvl 8.1 8.5 - 10.5 / MH S /2015 [facility] ELECTROLYTE Potassium 3.6 3.5 - 5.1 08/ MH S Lvl /2015 [facility] ELECTROLYTE Sodium Lvl 142 135 - 145 08/ MH S /2015 [facility] ELECTROLYTE BUN 9 7 - 22 08/ MH S /2015 [facility] ELECTROLYTE CO2 27 24 - 32 08/ MH S /2015 [facility] ELECTROLYTE Chloride Lvl 105 95 - 109 08/11 S /2015 [facility] ELECTROLYTE Glucose Lvl 122 70 - 99 06/24 S /2015 [facility] ELECTROLYTE eGFR 73 06/24 Result S Comment: [facility] eGFR is City calculated using the CKD-EPI formula. In most young, healthy individuals the eGFR will be >90 mL/min/1.73m2 . The eGFR declines with age. An eGFR of 60-89 may be normal in some populations, particularly the elderly, for whom the CKD-EPI formula has not been extensively validated. Use of the eGFR is not recommended in the following populations:< br/>
Yuliana viduals with unstable creatinine concentration s, including patients and those with serious co-morbid conditions.<b r/>
Patie nts with extremes in muscle mass or diet.

The data above are obtained from the National Kidney Disease Education Program (NKDEP) which additionally recommends that when the eGFR is used in patients with extremes of body mass index for purposes of drug dosing, the eGFR should be multiplied by the estimated BMI. ELECTROLYTE Creatinine 1.21 0.50 - 06/24 S Lvl 1.40 [facility] HEMATOLOGY MPV 7.4 7.4 - 10.4 06/24 /2015 [facility] HEMATOLOGY Platelet 209 133 - 450 06/24 [facility] HEMATOLOGY MCH 29.5 27.0 - 06/24 MH 31.0 [facility] HEMATOLOGY RDW 13.9 11.5 - 06/24 MH 14.5 [facility] HEMATOLOGY MCV 84.3 80.0 - 06/24 MH 94.0 /2015 [facility] HEMATOLOGY MCHC 34.9 32.0 - 08 MH 36.0 /2015 [facility] HEMATOLOGY WBC 8.1 3.7 - 10.4 08 /2015 [facility] HEMATOLOGY Hgb 14.5 14.0 - 06/24 MH 18.0 /2015 [facility] HEMATOLOGY RBC 4.92 4.70 - 08 MH 6.10 /2015 [facility] HEMATOLOGY Hct 41.5 42.0 - 06/24 MH 54.0 /2015 [facility] HEMATOLOGY PT 15.2 12.0 - 08 MH 14.7 /2015 [facility] HEMATOLOGY INR 1.17 0.85 - 06/24 MH 1.17 /2015 [facility] HEMATOLOGY PTT 30.6 22.9 - 08/ MH 35.8 /2016 [facility] HEMATOLOGY Eosinophils 1.3 0.0 - 4.0 08/11 MH /2015 [facility] HEMATOLOGY Monocytes 6.9 2.0 - 12.0 08/11 MH /2015 [facility] HEMATOLOGY Lymphocytes 21.2 20.0 - 08/ MH 40.0 /2015 [facility] HEMATOLOGY Segs 70.4 45.0 - 08/ MH 75.0 /2015 [facility] HEMATOLOGY Basophils 0.2 0.0 - 1.0 08/ MH /2015 [facility] HEMATOLOGY Segs-Bands # 5.7 1.5 - 8.1 08/ MH /2015 [facility] HEMATOLOGY Monocytes # 0.6 0.0 - 0.8 08/ MH /2015 [facility] HEMATOLOGY Lymphocytes 1.7 1.0 - 5.5 08/ MH # /2016 [facility] HEMATOLOGY Eosinophils 0.1 0.0 - 0.5 08/11 MH # /2016 [facility] CARDIAC CK MB 7.5 0.5 - 3.6 / ENZYMES /2015 [facility] CARDIAC CK MB Index 3.5 0.0 - 2.5 / MH ENZYMES /2015 [facility] CARDIAC Total CK 216 12 - 191 08/ MH ENZYMES /2016 [facility] CARDIAC Troponin-I 2.61 0.00 - 08 Result ENZYMES 0.40 /2016 Comment: [facility] Result(s) called to Adolph Hill at 06/23/2016 18:18 by Cl. Read back OK. BACTERIAL - MRSA by PCR Negative 06/23 SEROLOGY (06/23/16 10:54 AM) [facility] CHEM PANEL Phosphorus 4.0 2.5 - 4.5 06/23 MH /2015 [facility] CHEM PANEL Magnesium 2.1 1.8 - 2.4 08/10 Lvl /2015 [facility] CHEM PANEL Lactic Acid 1.2 0.5 - 2.2 08/10 Lvl /2015 [facility] ELECTROLYTE AGAP 18.7 10.0 - 0810 MH S 20.0 /2015 [facility] ELECTROLYTE B/C Ratio 12 6 - 25 08/10 MH S /2015 [facility] ELECTROLYTE A/G Ratio 1.2 0.7 - 1.6 08/10 MH S /2015 [facility] ELECTROLYTE Globulin 3.0 2.7 - 4.2 08/10 MH S /2015 [facility] ELECTROLYTE eGFR 91 08/ Result MH S Comment: [facility] eGFR is City calculated using the CKD-EPI formula. In most young, healthy individuals the eGFR will be >90 mL/min/1.73m2 . The eGFR declines with age. An eGFR of 60-89 may be normal in some populations, particularly the elderly, for whom the CKD-EPI formula has not been extensively validated. Use of the eGFR is not recommended in the following populations:< br/>
Yuliana viduals with unstable creatinine concentration s, including patients and those with serious co-morbid conditions.<b r/>
Patie nts with extremes in muscle mass or diet.

The data above are obtained from the National Kidney Disease Education Program (NKDEP) which additionally recommends that when the eGFR is used in patients with extremes of body mass index for purposes of drug dosing, the eGFR should be multiplied by the estimated BMI. ELECTROLYTE AST 111 0 - 37 08/10 MH S [facility] ELECTROLYTE Albumin Lvl 3.5 3.5 - 5.0 /10 S [facility] ELECTROLYTE Creatinine 1.01 0.50 - 08/10 MH S Lvl 1.40 /2015 [facility] ELECTROLYTE CO2 20 24 - 32 /10 MH S /2015 [facility] ELECTROLYTE ALT 134 0 - 65 /10 S [facility] ELECTROLYTE Glucose Lvl 98 70 - 99 /10 S /2015 [facility] ELECTROLYTE BUN 12 7 - 22 / MH S [facility] ELECTROLYTE Total 6.5 6.4 - 8.4 /10 MH S Protein [facility] ELECTROLYTE Bili Total 0.9 0.2 - 1.3 /10 MH S /2015 [facility] ELECTROLYTE Alk Phos 59 39 - 136 08/10 MH S /2015 [facility] ELECTROLYTE Potassium 3.7 3.5 - 5.1 08/10 MH S Lvl /2015 [facility] ELECTROLYTE Calcium Lvl 8.2 8.5 - 10.5 08/10 S /2015 [facility] ELECTROLYTE Chloride Lvl 106 95 - 109 08/10 MH S /2015 [facility] ELECTROLYTE Sodium Lvl 141 135 - 145 08/10 MH S /2015 [facility] HEMATOLOGY Basophils 0.2 0.0 - 1.0 08/10 /2015 [facility] HEMATOLOGY Eosinophils 0.8 0.0 - 4.0 08/10 MH /2015 [facility] HEMATOLOGY Segs-Bands # 7.7 1.5 - 8.1 08 /2015 [facility] HEMATOLOGY Lymphocytes 0.9 1.0 - 5.5 06/23 MH # /2015 [facility] HEMATOLOGY Eosinophils 0.1 0.0 - 0.5 06/23 MH # /2015 [facility] HEMATOLOGY Monocytes # 0.5 0.0 - 0.8 06/23 /2015 [facility] HEMATOLOGY Segs 84.2 45.0 - 06/23 MH 75.0 /2015 [facility] HEMATOLOGY Monocytes 5.2 2.0 - 12.0 08 /2015 [facility] HEMATOLOGY Plt Morph Normal 06/23 (06/23/16 10:53 AM) /2015 [facility] Lymphocytes 9.6 20.0 - 06/23 40.0 /2015 [facility] HEMATOLOGY RBC Morph Normal 06/23 (06/23/16 10:53 AM) /2015 [facility] HEMATOLOGY INR 1.17 0.85 - 06/23 1.17 /2015 [facility] HEMATOLOGY PT 15.2 12.0 - 06/23 14.7 /2015 [facility] HEMATOLOGY PTT 30.2 22.9 - 06/23 MH 35.8 /2015 [facility] HEMATOLOGY MPV 7.0 7.4 - 10.4 06/23 /2015 [facility] HEMATOLOGY RDW 13.4 11.5 - 06/23 14.5 /2015 [facility] HEMATOLOGY RBC 4.77 4.70 - 06/23 6.10 [facility] HEMATOLOGY Hgb 13.8 14.0 - 06/23 18.0 [facility] HEMATOLOGY WBC 9.2 3.7 - 10.4 06/23 /2015 [facility] HEMATOLOGY Platelet 195 133 - 450 06/23 /2015 [facility] HEMATOLOGY MCHC 34.8 32.0 - 06/23 36.0 [facility] HEMATOLOGY Hct 39.7 42.0 - 06/23 54.0 [facility] HEMATOLOGY MCH 28.9 27.0 - 06/23 31.0 [facility] HEMATOLOGY MCV 83.2 80.0 - 06/23 94.0 [facility] BLOOD BANK Antibody Negative 06/23 RESULTS Scrn (06/23/16 6:00 AM) /2015 [facility] BLOOD BANK ABO/Rh O POS 06/23 RESULTS /2015 [facility] CHEM PANEL A/G Ratio 1.1 0.7 - 1.6 06/09 /2015 [facility] CHEM PANEL Globulin 3.8 2.0 - 4.0 06/09 [facility] CHEM PANEL B/C Ratio 11 6 - 25 06/09 /2015 [facility] CHEM PANEL Total 7.9 6.4 - 8.4 06/09 [facility] CHEM PANEL Bili Total 0.7 0.2 - 1.3 06/09 [facility] CHEM PANEL Alk Phos 73 39 - 136 06/09 /2015 [facility] CHEM PANEL Albumin Lvl 4.1 3.5 - 5.0 06/09 [facility] CHEM PANEL ALT 51 0 - 65 06/09 [facility] CHEM PANEL AST 24 0 - 37 06/09 [facility] CHEM PANEL Vitamin D, 27 30 - 100 06/09 25-OH, Total /2015 [facility] HEMATOLOGY PT 13.8 12.0 - 06/09 MH 14. [facility] HEMATOLOGY PTT 31.5 22.9 - 06/09 MH 35.8 /2015 [facility] HEMATOLOGY INR 1.03 0.85 - 06/09 MH 1.17 /2015 [facility] HEMATOLOGY Platelet 270 133 - 450 06/09 /2015 [facility] HEMATOLOGY MCHC 32.5 32.0 - 06/09 MH 36.0 /2015 [facility] HEMATOLOGY Hct 46.5 42.0 - 06/09 MH 54.0 /2015 [facility] HEMATOLOGY MPV 7.2 7.4 - 10.4 06/09 /2015 [facility] HEMATOLOGY RDW 13.5 11.5 - 06/09 MH 14. [facility] HEMATOLOGY MCV 86.0 80.0 - 06/09 MH 94.0 /2015 [facility] HEMATOLOGY MCH 27.9 27.0 - 06/09 MH 31.0 /2015 [facility] HEMATOLOGY WBC 6.8 3.7 - 10.4 06/09 /2015 [facility] HEMATOLOGY RBC 5.40 4.70 - 06/09 MH 6.10 /2015 [facility] HEMATOLOGY Hgb 15.1 14.0 - 06/09 MH 18.0 /2015 [facility] HEMATOLOGY Lymphocytes 1.6 1.0 - 5.5 06/09 MH # /2015 [facility] HEMATOLOGY Monocytes # 0.4 0.0 - 0.8 06/09 [facility] HEMATOLOGY Eosinophils 0.2 0.0 - 0.5 06/09 MH # /2015 [facility] HEMATOLOGY Basophils # 0.0 0.0 - 0.2 06/09 [facility] HEMATOLOGY Segs-Bands # 4.4 1.5 - 8.1 06/09 [facility] HEMATOLOGY Eosinophils 3.6 0.0 - 4.0 06/09 [facility] HEMATOLOGY Monocytes 6.6 2.0 - 12.0 06/09 [facility] HEMATOLOGY Basophils 0.6 0.0 - 1.0 06/09 [facility] HEMATOLOGY Lymphocytes 24.2 20.0 - 06/09 MH 40.0 /2015 [facility] HEMATOLOGY Segs 65.0 45.0 - 06/09 75.0 [facility] PARATHYROID PTH Intact 42.0 11.1 - 06/09 PROFILE 79.5 /2015 [facility] SPECIAL Hgb A1C 5.9 <=5.6 % 06/09 CHEMISTRY /2015 [facility] URINE AND UA Leuk Est Negative Negative 06/09 STOOL (06/09/16 2:12 PM) /2015 [facility] URINE AND UA <=1.0 0.1 - 1.0 06/09 STOOL Urobilinogen mg/dL /2015 [facility] URINE AND UA Ketones Negative 06/09 STOOL /2015 [facility] URINE AND UA WBC 1 0 - 5 06/09 STOOL /2015 [facility] URINE AND UA RBC 2 0 - 2 06/09 STOOL [facility] URINE AND UA Bacteria Occasional None Seen 06/09 STOOL /HPF /HPF /2015 [facility] URINE AND UA Mucus Few /LPF None Seen 06/09 STOOL /LPF /2015 [facility] URINE AND UA Blood Small Negative 06/09 STOOL *ABN* /2015 [facility] (06/09/16 2:12 PM) [facility] URINE AND UA Nitrite Negative Negative 06/09 STOOL (06/09/16 2:12 PM) /2015 [facility] URINE AND UA Sq Epi Occasional Few /LPF 06/09 STOOL /LPF /2015 [facility] URINE AND UA pH 5.0 5.0 - 8.0 06/09 STOOL /2015 [facility] URINE AND UA Spec Grav 1.020 <=1.030 06/09 STOOL /2015 [facility] URINE AND UA Turbidity Clear Clear 06/09 STOOL (06/09/16 2:12 PM) /2015 [facility] URINE AND UA Glucose Negative Negative 06/09 STOOL mg/dL mg/dL /2015 [facility] URINE AND UA Protein Negative Negative 06/09 STOOL mg/dL mg/dL /2015 [facility] URINE AND UA Bili Negative Negative 06/09 STOOL *NA* /2015 [facility] (06/09/16 2:12 PM) [facility] URINE AND UA Color Yellow Yellow 06/09 STOOL *NA* /2015 [facility] (06/09/16 2:12 PM) [facility] Pathology Reports No Data Provided for This Section Diagnostic Reports Report Value Date Source Chest 2 views DX HISTORY: Cough 10/02/2019 [facility] TECHNIQUE: PA and lateral views of the chest. COMPARISON: Study dated 02/23/2016. FINDINGS: The lungs are well -inflated and clear. The cardiomediastinal silhouette and pulmonary vasculature are within normal limits. IMPRESSION: No radiographic evidence of acute ca rdiopulmonary disease. [id number] Chest 1view DX EXAM: 06/24/2016 [facility] 1 view(s) of the chest. INDICATION: Heart failure. COMPARISON: Chest x-ray: Yesterday. IMPRESSION: 1. Support apparatus: Cervical spine postoperati ve changes. 2. Borderline enlarged cardi ac silhouette with worsened bilateral consolidations for which pulmonary edema is favored over pneumonia. 3. No pneumothorax. Chest 1view DX EXAM: AP CHEST X-RAY 06/23/2016 [facility] DATE: 06/23/2016 12:07 PM CDT . CLINICAL INDICATION: Shortness of breath TECHNIQUE: SINGLE FRONTAL VIEW OF THE CHEST COMPARISON: Chest x-ray of 06/09/2016 FINDINGS: The lungs are well -inflated. There is cardiomegaly, venous congestion, mild pulmonary edema. There is no large pleural effusion. There is no acute bony abnormality. IMPRESSION: Cardiomegaly with mild pulmonary ángela ma asymmetric to left Chest 2 views DX EXAM: 06/09/2016 [facility] 2 view(s) of the chest. INDICATION: Cough. COMPARISON: Chest x-ray: None. FINDINGS: Support apparatus: None. Cardiac silhouette: Unremarkable. Opal: Unremarkable. Lobar consolidation: Negative. Pleural effusion: Negative. Pneumothorax: Negative. Other: Negative. Bones: Cervical spine postoperative changes. Other: None. IMPRESSION: 1. No acute cardiopulmonary process. Consultation Notes No Data Provided for This Section Discharge Summaries No Data Provided for This Section History and Physicals No Data Provided for This Section Vital Signs Vital Sign Value Date Comments Source Height 195.58 cm 05/05/2020 [facility] Weight 127.273 05/05/2020 [facility] BMI Calculated 33.27 05/05/2020 [facility] Temperature Oral (F) 98.6 F 10/10/2019 [facility] Heart Rate 45 10/10[facility] Resp[facility] 18 10/10[facility]2019 [facility] Systolic (mm Hg) 128 10/10/2019 [facility] Diastolic (mm Hg) 72 10/10/2019 [facility] Temperature Oral (F) 98.5 F 10/10/2019 [facility] Heart Rate 44 10/10/2019 [facility] Respitory Rate 16 10/10/2019 [facility] Systolic (mm Hg) 122 10/10/2019 [facility] Diastolic (mm Hg) 71 10/10/2019 [facility] Temperature Oral (F) 98.7 F 10/10/2019 [facility] Heart Rate 56 10/10/2019 [facility] Respitory Rate 18 10/10/2019 [facility] Systolic (mm Hg) 123 10/10/2019 [facility] Diastolic (mm Hg) 69 10/10/2019 [facility] Height 195.58 cm 10/02/2019 [facility] Weight 127.273 10/02/2019 [facility] BMI Calculated 33.27 10/02/2019 [facility] BMI Calculated 30.3 10/20/2018 [facility] Weight 115.909 10/20/2018 [facility] Height 195.58 cm 10/20/2018 [facility] Temperature Oral (F) 98.8 F 10/27/2016 [facility] Heart Rate 48 10/27/2016 [facility] Respitory Rate 18 10/27/2016 [facility] Systolic (mm Hg) 156 10/27/2016 [facility] Diastolic (mm Hg) 83 10/27/2016 [facility] Systolic (mm Hg) 147 10/27/2016 [facility] Diastolic (mm Hg) 79 10/27/2016 [facility] Temperature Oral (F) 98.0 F 10/27/2016 [facility] Heart Rate 54 10/27/2016 [facility] Respitory Rate 18 10/27/2016 [facility] Temperature Oral (F) 98.9 F 10/27/2016 [facility] Heart Rate 63 10/27/2016 [facility] Systolic (mm Hg) 153 10/27/2016 [facility] [place] Diastolic (mm Hg) 79 10/27/[facility] Respitory Rate 18 10/27/2016 [facility] BMI Calculated 46.11 10/25/2016 [facility] Weight 176.364 10/25/2016 [facility] Height 195.58 cm 10/25/2016 [facility] Temperature Oral (F) 98.7 F 06/25/2016 [facility] Respitory Rate 18 06/25/2016 [facility] Heart Rate 55 06/25/2016 [facility] Systolic (mm Hg) 127 06/25/2016 [facility] [place] Diastolic (mm Hg) 71 06/25/2016 [facility] Respitory Rate 18 06/25/2016 [facility] Systolic (mm Hg) 110 06/25/2016 [facility] [place] Diastolic (mm Hg) 62 06/25/2016 [facility] Heart Rate 65 06/25/2016 [facility] Temperature Oral (F) 98.0 F 06/25/2016 [facility] Systolic (mm Hg) 119 06/25/2016 [facility] [place] Diastolic (mm Hg) 66 06/25/2016 [facility] Respitory Rate 18 06/25/2016 [facility] Heart Rate 64 06/25/2016 [facility] Temperature Oral (F) 98.3 F 06/25/2016 [facility] Height 195.58 cm 06/09/2016 [facility] BMI Calculated 47.89 06/09/2016 [facility] Weight 183.182 06/09/2016 [facility] Encounters Location Location Encounter Encounter Reason Attending ADM NV Stat us Source Details Type Number For Provider Date Date Visit [facility] [id number] [facility]in 06/23 06/[facility] Inpatient [id number] Dallin 10/26 10/27 [facility] [place] [facility] /2015 [facility] Bedded [id number] Dallin 08/25 08/25 [place] [facility] /2017 [facility] Bedded [id number] Dallin 10/20 10/20 [facility] /2017 [facility] Inpatient [id number] Dallin 10/09 10/10 [facility] [place] /2018 [facility] Outpatient [id number] Dallin 10/15 Active [facility] [place] Outpatient [id number] 12/18 Active [facility] /2019 [facility] Outpatient [id number] Dallin 12/18 12/19 [facility] [place] [facility] Out[facility] [id number] Dallin 01/13 Active [facility] [place] /2019 [facility] Ambulatory [id number] Dallin 01/13 01/13 [facility] [place] /2019 [facility] Outpatient [id number] Dallin 05/05 [facility] /2019 [facility] Outpatient [id number] Dallin 05/05 05/06 [facility] [place] /2019 [facility] Surgery Procedures Procedure Code Date Perfomer Comments Source Shoulder [id number] right [facility] reconstruction<sup City >2</sup> Cervical spinal [id number] c5 + c6 Medica l fusion<sup>1</sup> Group, [facility] Colonoscopy [id number] Medical Group,[facility] Endoscopy [id number] Medical Group,[facility] Gastric bypass [id number] 2015 Medical operation<sup>2</s Group, up> [facility] Shoulder [id number] right Medical reconstruction<sup Group, MH >3</sup> [facility] Assessment and Plan Assessment and Plan Date Source Extracted from:Title: Surgery Note 10/10/2019 [facility] Author: Ion Barron (Fellow) DO Date: 10/10/19 44M s/p l aparoscopic revision o f gastrojejunostomy, intraoperative endoscopy; POD1 - advance to full liquids, monitor for toleration - continue IV hydration - convert to PO pain medication regimen: Tylenol and PRN Tr amadol - Zofran, Phenergan PRN - pertinent home meds resumed - continue OOB, ambulation and incentive spirometry - VTE ppx: Lovenox, SCDs Anticipate discharge to home later today pending diet fidencio ation Discussed with attending, Dr. Lemon Addendum by Malgorzata Lemon MD on 10/10/2019 16:0 2 [employer] Pt seen and examined by me. They are doi ng well today. Pain is well controlled. No N/V/F/S/C. Tolerating full liquid diet. +amb, +urination. No flatus yet. On exam, abd is soft, ND, ATTP. Inc sites C/D/ I. Lab ok. Will plan to D/C pt home late r today. D/C instructions given at the bedside. The pt's questions were answered to their satisfaction, and they stated understanding. They will F/U with Dr. Prescottin the office in 1 week. They al so know to call for any questions or concerns. Extracted from:Title: Clinical Document 10/27/2016 [facility] Author: Dallin Prescott MD Date: 10/27/16 Progress Note - Daily [facility] Completed: Tuesday, OCT 27, 2016, 13:10 by Dallin Prescott MD RM: 535 - 00, [id number] TOMAS III, BRANDON REESELEY 41y (: 1975) M Attending: Dallin Prescott MD Service: Surgery Reason for Admission: 10129- MORBID OBESITY Working DRG: None Documented Code status: None Specified=FULL CODE Current diet: Isolation: None Documented Allergies: NKDA SUBJECTIVE/ OBJECTIVE No events. Tolerating diet. Pain controlled. Ambulating well . 24hr Labs 10/27 0405 Glucose Lvl 116 H BUN 11 Creatinine Lvl 1.03 Sodium Lvl 140 Potassium Lvl 4.2 Chloride Lvl 102 CO2 26 AGAP 16.2 Calcium Lvl 8.4 L eGFR 89 PT 14.9 H INR 1.15 PTT 30.7 WBC 10.9 H RBC 4.88 Hgb 13.8 L Hct 40.6 L MCV 83.2 MCH 28.3 MCHC 34.0 RDW 13.2 Platelet 237 MPV 7.1 L Segs 88.8 H Monocytes 4.1 Lymphocytes 6.9 L Basophils 0.2 Segs-Bands # 9.6 H Lymphocytes # 0.7 L Monocytes # 0.5 10/26 1318 ABO/Rh O POS Antibody Scrn Negative Sodium Lvl 137 Potassium Lvl 4.2 Chloride Lvl 104 CO2 21 L AGAP 16.2 Glucose Lvl 76 Creatinine Lvl 1.10 BUN 12 B/C Ratio 11 Total Protein 7.8 Albumin Lvl 4.0 Globulin 3.8 A/G Ratio 1.1 Calcium Lvl 9.1 ALT 52 AST 33 Alk Phos 54 Bili Total 1.5 H eGFR 82 PTH Intact 58.1 Vitamin D, 25-OH, Tota 26 L WBC 5.6 RBC 5.30 Hgb 14.9 Hct 44.3 MCV 83.6 MCH 28.2 MCHC 33.7 RDW 13.5 Platelet 235 MPV 6.9 L Segs 61.7 Monocytes 8.1 Lymphocytes 26.5 Eosinophils 2.8 Basophils 0.9 Segs-Bands # 3.5 Lymphocytes # 1.5 Monocytes # 0.5 Eosinophils # 0.2 PT 14.3 INR 1.09 PTT 32.4 Glucose POC 75 [place] still necessary (Yes/No): Line still george perez (Yes/No): Vitals Tmp(F) Pulse BP RR SpO2 FIO2 10/27 12:23 98.8 48 156/83 18 --- --- 10/27 07:23 98.0 54 147/79 18 95 --- 10/27 06:39 ---- --- ----- -- 94 --- 10/27 03:00 98.9 63 153/79 18 93 --- 10/27 00:15 98.6 59 131/76 18 92 --- 24 Hr Tmax: 99.1F (37.28c) at 10/26 20:4 5 Vital Signs are the last 5 in the past 48 hours. Date Wt(kg) Wt(lb) Ht(cm) Ht(in) Method 10/25 (initial) 176.36 388.00 195.58 77.00 Measured I&O Record In Out Bal 10/27 24hr Tot 2 0 2 10/26 24hr Tot [id number] Medications (20) Active Scheduled Meds (2): 10/27/16 enoxaparin 30 mg SUB-Q [id number] 10/26/16 ketOROLAC 30 mg IVP Q6H Unscheduled Meds: None PRN Meds (4): 10/26/16 hydromorphone (Dilaudid) 0.5 mg IVP Q3H 10/26/16 ondansetron 4 mg IVP Q12H 10/26/16 promethazine 12.5 mg IVPB Q4H 300 ml/hr 10/27/16 tramadol (tramadol 50 mg oral tablet) 50 mg PO Q4H One Time Meds (12): (Completed) ceFAZolin (ceFAZolin (ANES)) IV ONCE (Completed) famotidine (famotidine (ANES)) IV ONCE (Completed) fentaNYL (fentaNYL (ANES)) IV ONCE (Completed) glycopyrrolate (glycopyrrolate (ANES)) IV ONCE (Completed) lidocaine (lidocaine (ANES)) IV ONCE (Completed) metoclopramide (metoclopramide (ANES)) IV ONCE (Completed) midazolam (midazolam (ANES)) IV ONCE (Completed) neostigmine (neostigmine (ANES)) IV ON CE (Completed) ondansetron (ondansetron (ANES)) IV ON CE (Completed) propofol (propofol (ANES)) IV ONCE (Completed) rocuronium (rocuronium (ANES)) IV ONCE (Completed) succinylcholine (succinylcholine (ANES )) IV ONCE Continuous Infusions (2): 10/26/16 Lactated Ringers 1,000 mL 1,000 mL 125 ml/hr 10/26/16 Lactated Ringers 1,000 mL 1,000 mL 80 ml/hr ASSESSMENT and EXAM NAD RRR Soft, ND, appr TTP, wounds c/d/i PLAN and TREATMENT No events. Tolerating diet. Pain controlled. Ambulating well . Cont protocol. Ready for Discharge (Yes/No)? TEACHING ATTESTATION Extracted from:Title: Clinical Document 06/25/2016 [facility] Author: Luli New MD Date: 06/23/16 Consultation Note [employer] [facility] REASON FOR CONSULT: s/p cardiac arrest CHIEF COMPLAINT: had cardiac arrest prior to surgery HPI: 41 year old man with morbid obesity , BMI of 47. He was scheduled for bariatric surgery-gastric bypass surgery today. In the OR, he became bradycardic during intra-abdominal insufflation. The bradyc ardia progressed rapidly to aystole, CPR was done with ROSC in 1 minute. The rythm after ROSC was sinus but with widened QRS complex and looked like torsades. IV magnesium was given. Patient was eventua lly extubated after he woke up and was t ransferrred to ICU for monitoring. on arrival to ICU he has been awake and alert. has no complaints.He was slightly hypotensive on arrival with SBP in 80's and was given 2L bolus of NS. Of note, he had seen a cardiolgist in [facility] and was cleared for surgery. He has had previous endoscopies and surgeries needing general anesthesia without any complications. HISTORIES: Past Medical History: morbid obesity- BMI 47 Back pain Family History: Father: Cancer; Diabetes mellitus Mother: Multiple sclerosis Past Surgical History: Colonoscopy Cervical spinal fusion Endoscopy Shoulder reconstruction Social History: Tobacco Details: Use: Never smoker. Tobacco smo ke exposure: None. Did the Patient Smoke Cigarettes Anytime During the Last 365 Days? No. Cessation Counseling Provided? No. Home Medications: baclofen: 10 mg, 1 tab, PO, BID, 0 Refill(s). carBAMazepine: 200 mg, 1 tab, PO, Daily, 0 Refill (s). tramadol: 50 mg, 1 tab, PO, Q8H, for 20 day, PRN: Pain, 60 tab, 0 Refill(s). Current Medications: Medication List Active Medications Ordered acetaminophen: 1,000 mg, 100 mL, 400 ml/hr, IV, Q 6Hnow. Lactated Ringers 1,000 mL: 12 5 ml/hr, IV, Stop: 07/23/16 8:26:00 CDT. Lactated Ringers 1,000 mL: 12 5 ml/hr, IV, Stop: 06/24/16 6:00:00 CDT. ondansetron: 4 mg, 2 mL, IVP, Q12H, PRN: Nausea a nd Vomiting. promethazine: 12.5 mg, 0.5 mL, IM, Q4H, PRN: Naus ea and Vomiting. Sodium Chloride 0.9% IV: 2,000 mL, 1,000 ml/hr, I V, ONCE. Allergies (1) Active Reaction NKDA None Documented REVIEW OF SYSTEMS Constiutional: no fevers, no chills, no weight loss Head: no headaches Eyes:,no visual disturbance Nose: no rhinorrhea, no sinus drainage/pressure Throat: no sore throat, no voice hoarsness Resp: no dyspnea, no cough, no hemoptysis CV: post cardiac arrest as noted above, but currently no ch est pain GI: no nausea, no emesis, Endocrine: no heat/cold intolerance, no polyuria, no polydip dawna : no dysuria, no hematuria Hematologic: no easy bruising Neuro: no dizziness, no gait abnormalities, no memory loss Musculoskeletal: no joint pain/joint stiffnes Psych: no hallucinations, normal mood/affect OBJECTIVE Vitals and Temp: Vitals Tmp(F) Pulse BP RR SpO2 FIO2 06/23 12:00 98.1 --- ----- -- --- --- 06/23 11:00 ---- 69 93/63 21 95 --- 06/23 10:30 ---- 59 84/58 17 100 --- 06/23 10:00 ---- 63 91/61 15 96 --- 06/23 09:30 ---- 60 79/60 19 100 --- 24 Hr Tmax: 98.6F (37.00c) at 06/23 09:0 0 Vital Signs are the last 5 in the past 48 hours. No I and O Data Available VENT SETTINGS 06/23/2016 11:00 SpO2 percent 95 Physical Exam: GENERAL APPEARANCE: Well developed, morbidly obese, NAD EYES: Pupils equal and reactive to light NOSE: No nasal discharge. THROAT: No erytema, no exudates NECK: Neck supple CARDIAC: S1S2, RRR, no murmur LUNGS: CTAB with decreased breath sounds at bases ABDOMEN: Positive bowel sounds. Soft, n ondistended, nontender. No guarding or rebound. . MUSKULOSKELETAL:normal on inspection EXTREMITIES: No edema, no cyanosis SKIN: normal color and texture NEUROLOGICAL:Awake and alert PSYCHIATRIC: no agitation Labs (Last four charted values) WBC 9.2 (JUN 23) 6.8 (JUN 09) Hgb L 13.8 (JUN 23) 15.1 (KACY 2 7) Hct L 39.7 (JUN 23) 46.5 (MAY 15) Plt 195 (JUN 23) 270 (JUN 09) Na 141 (JUN 23) 140 (JUN 09) K 3.7 (JUN 23) 3.8 (JUN 09) CO2 L 20 (JUN 23) 30 (JUN 09) Cl 106 (JUN 23) 102 (JUN 09) Cr 1.01 (JUN 23) 1.04 (JUN 09) BUN 12 (JUN 23) 11 (JUN 09) Glucose Random 98 (JUN 23) H 115 (JUN 09) Mg 2.1 (JUN 23) Phos 4.0 (JUN 23) Ca L 8.2 (JUN 23) 9.3 (JUN 09) PT H 15.2 (JUN 23) 13.8 (MAY 15) INR 1.17 (JUN 23) 1.03 (JUN 09) PTT 30.2 (JUN 23) 31.5 (JUN 09) Troponin C 1.44 (JUN 23) lactic acid: 1.2 (normal) Alk Phos: 59 06/23/16 11:29:08 A/G Ratio: 1.2 06/23/16 11:29:08 ALT: 134 High 06/23/16 11:26:12 Albumin Lvl: 3.5 06/23/16 11:26:12 Bili Total: 0.9 06/23/16 11:29:08 Total Protein: 6.5 06/23/16 11:29:08 Globulin: 3.0 06/23/16 11:29:08 DIAGNOSTICS: Personally reviewed 1. CXR: mild pulmonary edema 2. EKG: sinus rythm, no st segment changes ASSESSMENT 1. s/p cardiac arrest during intraabdomi nal insufflation for gastric bypass surgery: bradycardia to asystole with ROSC after 1 min of CPR. rthm after ROSC showing wide QRS. Etiologies include idiosyncra tic reaction to anesthetic agent or insu fflation gas, acute coronary syndrome, arrythmia/conduction abnormalities or electrolyte issue (K+ or magnesisum).howver, bmp showing normal K+ and magenesium levels 2. elevated cardiac enzymes due to #1 3. No anxoic encephalopathy due to rapid ROSC. patient is awake and alert, therefore, no indication for Target temperature management 4.Morbid obesity, BMI 47 5. mild transaminitis, likey fatty liver 6. hypotension, likely due to hypovolemi a. no evidence of shock at this time (normal lactate levels) PLAN 1. hypotension resolved with 2L NS bolus. repeat boluses as needed 2. serial cardiac enzymes, Echo cardiogr am and cardiology consultation. futher management plans based on Echo report and resulst of serial cardiac enzymes 3. heparin for dvt prophylaxis 4. heart healthy diet 5.monitor in ICU today Case discussed with Dr. Jones Critical care delivered for:45 minutes Excludes procedures and teaching time (Y/N) :Y Plan of Care No Data Provided for This Section Social History Social History Date Source Social History TypeResponse 05/05/2020 [facility] Smoking Status Never smoker; Exposure to Tobacco Smoke None; Cigarette Smoking Last 365 Days No; Reg Smoking Cessation Counseling No entered on: 05/05/20 Social History TypeResponse 10/02/2019 [facility] Smoking Status Never smoker; Exposure to Tobacco Smoke None; Cigarette Smoking Last 365 Days No; Reg Smoking Cessation Counseling No entered on: 10/02/19 Family History No Data Provided for This Section Advance Directives No Data Provided for This Section Functional Status No Data Provided for This Section
--- OUTSIDE RECORDS SUMMARY | 2020-08-29 11:59 | XMS REPORT | Continuity of Care Document ---
:1975 Author Organization [facility] t Address [address] [place] [address] Care Team Providers Name Role Phone Flakito Prescott Attending Clinician Flakito Prescott Admitting Clinician Payers Payer Name Policy Type Policy Number Effective Date Expiration Date S ource Problems Condition Condition Condition Status Onset Resolution Last Treating Co mments Source Name Details Category Date Date Treatment Clinician Date 48700, Diagnosis Active 2018-112019-09-10 Mem oria EPIGASTRIC 0-01 16:36:00 l PAIN 74967, 00:00: Meng EPIGASTRIC 00 PAIN Active 08/14/2019 [facility] 83439 Diagnosis Active 2018-112019-10-10 Mem oria E66.01 0-01 11:33:00 l K28.9 [id number] 00:00: [place] K21.9 E66.01 00 K28.9 K21.9 Active 08/14/2019 [facility] 63943, Diagnosis Active 2017-112018-10-20 Mem oria GASTRIC 1-09 06:44:00 l ULCER 12827, 00:00: Meng GASTRIC 00 ULCER Active 09/22/2018 [facility] ACUTE Diagnosis Active 2017-112018-09-25 Mem oria GASTRIC 0-04 15:35:00 l ULCER WITH ACUTE 00:00: Destinee nn HEMORRHAGE GASTRIC 00 ULCER WITH HEMORRHAGE Active 08/17/2018 [facility] Z98.84 - Diagnosis Active 2017-09-09 rhett BARIATRIC 08-04 16:04:00 l SURGERY Z98.84 - 00:01: Destinee nn STATUS BARIATRIC 00 R10.9 SURGERY STATUS R10.9 Active 08/04/2017 [facility] 18820- Diagnosis Active 2015-112016-10-28 Mem oria MORBID 12-13 12:54:00 l OBESITY 16649- 00:00: Meng MORBID 00 OBESITY Active 10/13/2016 [facility] 57296, Diagnosis Active 2016-06-24 [facility] oria E66.01 05-28 16:59:00 l MORBID 25377, 00:00: [place] OBESITY E66.01 00 MORBID OBESITY Active 05/28/2016 [facility] Gastrojeju Problem 2019-05-09 rhett nal ulcer, 13:53:40 l unspecifie Manuelito n d as acute Gastrojeju or nal ulcer, chronic, unspecifie without d as acute hemorrhage or or chronic, perforatio without n hemorrhage or perforatio n 05/09/2019 [facility] Gastro-eso Problem 2019-05-09 rehtt phageal 13:53:40 l reflux [place] disease Gastro-eso with phageal esophagiti reflux s disease with esophagiti s 05/09/2019 [facility] Surgical Problem 2019-05-09 [facility] oria operation 13:53:40 l with Surgical Manuelito n anastomosi operation s, bypass with or graft anastomosi as the s, bypass cause of or graft abnormal as the reaction cause of of the abnormal patient, reaction or of of the later patient, complicati or of on, later without complicati mention of on, misadventu without re at the mention of time of misadventu the re at the procedure time of the procedure 05/09/2019 [facility] Morbid Problem Active 2020-05-07 Memor ia obesity 23:57:10 l (disorder) Morbid Herm meliza obesity (disorder) Active Problem 05/07/2020 [facility] Neck pain Problem Active 2020-05-07 Me moria (finding) 23:57:10 l Neck Meng pain (finding) Active Problem 05/07/2020 [facility] Sleep Problem Active 2020-05-07 Memor ia apnea 23:57:10 l (finding) Sleep Manuelito mondragon apnea (finding) Active Problem 05/07/2020 [facility] History of Problem Active 2020-05-07 M emoria bypass of 23:57:10 l stomach History Manuelito mondragon (situation of bypass ) of stomach (situation ) Active Problem 05/07/2020 [facility] MORBID Diagnosis Active 2016-06-24 Mem oria (SEVERE) 16:59:00 l OBESITY MORBID Meng DUE TO (SEVERE) EXCESS CA OBESITY DUE TO EXCESS CA Active [facility] ILLNESS, Diagnosis Active 2019-10-10 M emoria UNSPECIFIE 11:33:00 l D ILLNESS, Manuelito n UNSPECIFIE D Active [facility] Other Problem 2017-112019-05-09 2019-05-09 M emoria postproced 2-14 13:53:40 13:53:40 l ural Other 05:01: Meng complicati postproced 58 ons and ural disorders complicati of ons and digestive disorders system of digestive system 10/27/2018 05/09/2019 [facility] Allergies, Adverse Reactions, Alerts Allergy Allergy Status Severity Reaction(s) Onset Inactive Treating Comm ents Source Name Type Date Date Clinician No Known DA Active [facility] All[facility]ie 6-20 Clear s 00:00: [place] 00 [facility] No Known No Known Active Memori a Medicati Medicati l on on [place] Allergie Allergie s s Social History Smoking Status Start Date Stop Date Source Social History [facility] Medications Ordered Filled Start Stop Current Ordering Indication Dosage Frequency Signature Comments Components Source Medication Medication Date Date Medication? Clinician (SIG) Name Name remove 2018-11 No Notes: Memoria patch 12-12 Remove old l 16:00: patch Meng 00 before applicatio n of new patch. Amoxicillin 2018-11 No Notes: Wily reymundo 12-11 (Same as: l 03:00: Amoxil) Clarithromy 2018-11 No Notes: Wily reymundo kayla 12-10 (Same As: l 16:00: Biaxin) Acetaminoph 2018-11 No Notes: Do M emoria en 12-10 not exceed l 15:21: 4 gm/day. (Same as: Tylenol) Protonix 2018-11 No Notes: For Mem oria 1-27 IV push l 15:00: reconstitu te with 10 ml 0.9% sodium chloride and push over 2 minutes. (Same as: Protonix) Ofirmev 2018-11 No Notes: Memoria 12-09 Infuse l 20:00: over 15 minutes Do not exceed 4gm/day of acetaminop hen MEDICATION WASTE Product Size: 1000 mg Product Wasted: ___ mg Lovenox 2018-11 No Notes: Memoria 12-09 (Same as: l 16:00: Lovenox) Ketorolac 2018-11 No 4 days Memor ia 12-09 l 16:00: MEDICATION WASTE Product Size: 30 mg Product Wasted: ___ mg 72 HR 2018-11 No Notes: Memoria Scopolamine 12-09 Change l 0.0139 16:00: patch Meng MG/HR 00 every 72 Transdermal hours Patch (Same as: Transderm- Scop) ondansetron 2018-11 No Route: IV, Memoria (ANES) 12-09 Drug form: l 15:27: INJ, ONCE, Stop date: 10/09/19 9:27:00 [employer] neostigmine 2018-11 No Route: IV, Memoria (ANES) 12-09 Drug form: l 15:27: INJ, ONCE, Stop date: 10/09/19 9:27:00 [employer]ATE [employer] MA[employer]GER sucralfate 2018-11 Yes 1 gm = 1 Mem oria 1 g oral 12-09 tab, PO, l tablet 15:26: Before Meals & Bedtime, crush and mix with 5-10mL water, # 56 tab, 0 Refill(s) clarithromy 2018-11 Yes 500 mg, Mem oria kayla 500 mg 26 PO, l oral tablet 15:26: [id number], X Meng 00 14 day, # 28 tab, 0 Refill(s) amoxicillin 2018-11 Yes 1,000 mg, M emoria 500 mg oral 26 PO, Q12H, l capsule 15:26: X 14 day, Destinee 00 # 56 tab, 0 Refill(s) tramadol 2018-11 No 50 mg, PO, Mem oria hydrochlori 12-09 Q4H, PRN l de 50 MG 15:26: Pain Score Her samuel Oral Tablet 00 4-6, X 3 day, # 18 tab, 0 Refill(s) omeprazole 2018-11 Yes 40 mg = 1 Me moria 40 mg oral 12-09 cap, PO, l delayed 15:26: Daily, # Manuelito n release 00 30 cap, 1 capsule Refill(s) Calcium 2018-11 No 1,000 mL, Memor ia Chloride 12-09 Rate: 150 l 0.0014 15:21: ml/hr, Meng MEQ/ML / 00 Infuse Potassium over: 6.7 Chloride hr, Route: 0.004 IV, Dosing MEQ/ML / Weight Sodium 127.273 Chloride kg, Total 0.103 Volume: MEQ/ML / 1,000, Sodium Start Lactate date: 0.028 10/09/19 MEQ/ML 9:21:00 Injectable [employer], Solution Duration: 30 day, Stop date: 11/08/19 9:20:00 [employer]ATE [employer] MANAGER, 2.64, m2, 0 tramadol 2018-11 No Notes: Not Mem oria hydrochlori 12-09 to exceed l de 50 MG 15:21: 400mg/day. Her samuel Oral Tablet 00 (Same As: Ultram) Dilaudid 2018-11 No Notes: Memoria 12-09 Same as l 15:21: Dilaudid Labetalol 2018-11 No Notes: Memori a 12-09 (Same as: l 15:21: Normodyne, Meng 00 Trandate) Push over 2 minutes Give bolus over 2-3 minutes. Hydralazine 2018-11 No Notes: Wily reymundo 12-09 (Same as: l 15:21: Apresoline [place] 00 ) Push over 5 minutes Ondansetron 2018-11 No Notes: Wily reymundo 12-09 (Same as: l 15:21: Zofran) 00 MEDICATION WASTE Product Size: 4 mg Product Wasted: ___ mg Promethazin 2018-11 No 12.5 mg, Me moria e 12-09 50 mL, l 15:21: Route: Meng 00 IVPB, Drug form: SOLN, Q6H, Dosing Weight 127.273, kg, PRN Nausea & Vomiting, Start date: 10/09/19 9:21:00 [employer]GER, Duration: 30 day, Stop date: 11/08/19 9:20:00 [employer]ATE [employer] MANAGER, 0 ePHEDrine 2018-11 No Route: IV, Me moria (ANES) 12-09 Drug form: l 15:01: INJ, ONCE, Stop date: 10/09/19 9:01:00 [employer]ATE [employer] MANAGER glycopyrrol 2018-11 No Route: IV, Memoria ate (ANES) 12-09 Drug form: l 14:36: INJ, ONCE, Stop date: 10/09/19 8:36:00 [employer]PORATE [employer]STATE MANAGER ceFAZolin 2018-11 No Route: IV, Me moria (ANES) 12-09 Drug form: l 14:25: INJ, ONCE, Stop date: 10/09/19 8:25:00 [employer]PORATE [employer]STATE MANAGER dexamethaso 2018-11 No Route: IV, Memoria ne (ANES) 12-09 Drug form: l 14:25: INJ, ONCE, Stop date: 10/09/19 8:25:00 [employer]PORATE [employer]STATE MANAGER acetaminoph 2018-11 No Route: IV, Memoria en (ANES) 12-09 Drug form: l 14:25: INJ, ONCE, Stop date: 10/09/19 8:25:00 [employer]PORATE [employer]STATE MANAGER midazolam 2018-11 No Route: IV, Me moria (ANES) 12-09 Drug form: l 14:20: SOLN, Megn 00 ONCE, Stop date: 10/09/19 8:20:00 CORPORATE [employer] ESTATE MANAGER fentaNYL 2018-11 No Route: IV, Mem oria (ANES) 12-09 Drug form: l 14:20: INJ, ONCE, Stop date: 10/09/19 8:20:00 CORPORATE [employer]STATE MANAGER lidocaine 2018-11 No Route: IV, Me moria (ANES) 12-09 Drug form: l 14:20: INJ, ONCE, Stop date: 10/09/19 8:20:00 [employer]PORATE [employer]STATE MANAGER propofol 2018-11 No Route: IV, Mem oria (ANES) 12-09 Drug form: l 14:20: INJ, ONCE, Stop date: 10/09/19 8:20:00 CORPORATE [employer]STATE MANAGER rocuronium 2018-11 No Route: IV, M emoria (ANES) 12-09 Drug form: l 14:20: INJ, ONCE, Meng 00 Stop date: 10/09/19 8:20:00 [employer]PORATE [employer]STATE MANAGER famotidine 2018-11 No Route: IV, M emoria (ANES) 12-09 Drug form: l 14:20: INJ, ONCE, Stop date: 10/09/19 8:20:00 CORPORATE [employer]STATE MANAGER Morphine 2018-11 No Notes: Memoria 12-09 (Same l 14:07: as:MORPhin e Sulfate) Flumazenil 2018-11 No Notes: Memor ia 12-09 (Same as: l 14:07: Romazicon) Naloxone 2018-11 No Notes: Memoria 12-09 Same as l 14:07: Narcan Ondansetron 2018-11 No Notes: Wily reymundo 12-09 (Same as: l 14:07: Zofran) MEDICATION WASTE Product Size: 4 mg Product Wasted: ___ mg Lactated 2018-11 No Route: IV, Mem oria Ringers 12-09 Total l Injection 13:35: Volume: Destinee nn IV (ANE) 00 1,000, 1000 mL Start date: 10/09/19 7:35:00 [employer]PORATE [employer] MANAGER, Stop date: 10/09/19 8:35:00 CORPORATE [employer] ESTATE MANAGER ceFAZolin + 2018-11 No Notes: Wily reymundo sterile 12-09 (Same As: l water 30 mL 05:00: Ancef, Herm meliza Kefzol) MEDICATION WASTE Product Size: 1000 mg Product Wasted: ___ mg multivitami 2018-11 No Daily, 0 Me moria n 12-02 Refill(s) l 22:34: Stool 2018-11 Yes PO, Memoria Softener 12-02 Bedtime, 0 l with 22:34: Refill(s) Laxative Vitamin B 2018-11 No PO, Daily, Me moria Complex 12-02 0 l oral 22:34: Refill(s) capsule Calcium 2018-11 No PO, BID, 0 Wily reymundo Citrate 12-02 Refill(s) l 22:34: Meng 00 Sucralfate 2018-11 No = 10 ml, Mem oria 12-02 PO, Before l 22:33: Meals & Meng Bedtime, # 200 ml, 0 Refill(s) Cetirizine 2017-11 Yes See Memoria 12-21 Instructio l 13:22: ns, Daily, Meng 00 0 Refill(s) Azithromyci 2017-11 Yes See Memori a n -07 Instructio l 13:22: ns, PO [place] 00 Daily, 0 Refill(s) MethylPREDN 2017-11 Yes See Memori a ISolone 12-21 Instructio l Dose Pack 4 13:22: ns, PO, Her samuel mg oral 00 Daily, Use tablet as directed on label., # 1 Pack, 0 Refill(s) Nexium 2017-11 Yes See Memoria 12-21 Instructio l 13:22: ns, PO Meng 00 Daily, 0 Refill(s) benzonatate 2017-11 Yes See Memori a 12-21 Instructio l 13:22: ns, PO Meng 00 TID, 0 Refill(s) tramadol 2015-11 Yes 50 mg = 1 Wily reymundo hydrochlori 2-14 tab, PO, l de 50 MG 20:55: Q4H, PRN Destinee nn Oral Tablet 00 Pain Score 1-3, X 7 day, # 42 tab, 0 Refill(s) tramadol 2015-11 No Notes: Not Mem oria hydrochlori 2-14 to exceed l de 50 MG 12:58: 400mg/day. Her samuel Oral Tablet 00 (Same As: Ultram) Enoxaparin 2015-11 No Notes: Memor ia 2-14 (Same as: l 11:00: Lovenox) Meng Ketorolac 2015-11 No 4 days Memor ia 2-14 l 00:00: MEDICATION WASTE Product Size: 30 mg Product Wasted: ___ mg ondansetron 2015-11 No Route: IV, Memoria (ANES) 2-13 Drug form: l 23:00: INJ, ONCE, Stop date: 10/26/16 17:00:00 [employer]PORATE [employer]NAGER neostigmine 2015-11 No Route: IV, Memoria (ANES) 2-13 Drug form: l 23:00: INJ, ONCE, Meng 00 Stop date: 10/26/16 17:00:00 [employer]PORATE [employer]STATE MANAGER Dilaudid 2015-11 No Notes: Memoria 2-13 Same as l 22:36: Dilaudid Ondansetron 2015-11 No Notes: Wily reymundo 2-13 (Same as: l 22:34: Zofran) MEDICATION WASTE Product Size: 4 mg Product Wasted: ___ mg Promethazin 2015-11 No 12.5 mg, Me moria e 2-13 50 mL, l 22:34: Route: IVPB, Drug form: SOLN, Q4H, Dosing Weight 176.364, kg, PRN Nausea & Vomiting, Start date: 10/26/16 16:34:00 [employer]PORATE [employer]STATE MANAGER, Duration: 30 day, Stop date: 11/25/16 16:33:00 [employer]PORATE [employer] ESTATE MANAGER Lactated 2015-11 No 1,000 mL, Wily reymundo Ringers 12-27 Rate: 80 l 1,000 mL 22:34: ml/hr, Infuse over: 12.5 hr, Route: IV, Dosing Weight 176.364 kg, Total Volume: 1,000, Priority: STAT, Start date: 10/26/16 16:34:00 CORPORATE [employer]STATE MANAGER, Duration: 30 day, Stop date: 11/25/16 16:33:00 CORPORATE [employer] ESTATE MANAGER Calcium 2015-11 No 1,000 mL, Memor ia Chloride 12-27 Rate: 125 l 0.0014 22:34: ml/hr, MEQ/ML / 00 Infuse Potassium over: 8 Chloride hr, Route: 0.004 IV, Dosing MEQ/ML / Weight Sodium 176.364 Chloride kg, Total 0.103 Volume: MEQ/ML / 1,000, Sodium Start Lactate date: 0.028 10/26/16 MEQ/ML 16:34:00 Injectable [employer]ATE [employer]STATE MANAGER, Stop Solution date: 10/27/16 16:33:00 CORPORATE REAL ESTATE MANAGER metoclopram 2015-11 No Route: IV, Memoria martinez (ANES) 2- Drug form: l 22:22: INJ, ONCE, Stop date: 10/26/16 16:22:00 CORPORATE [employer] ESTATE MANAGER famotidine 2015-11 No Route: IV, M emoria (ANES) 2-13 Drug form: l 22:22: INJ, ONCE, Stop date: 10/26/16 16:22:00 CORPORATE REAL ESTATE MANAGER propofol 2015-11 No Route: IV, Mem oria (ANES) 2-13 Drug form: l 21:27: INJ, ONCE, Stop date: 10/26/16 15:27:00 CORPORATE REAL ESTATE MANAGER glycopyrrol 2015-11 No Route: IV, Memoria ate (ANES) 2-13 Drug form: l 21:27: INJ, ONCE, Stop date: 10/26/16 15:27:00 CORPORATE REAL ESTATE MANAGER fentaNYL 2015-11 No Route: IV, Mem oria (ANES) 2-13 Drug form: l 21:27: INJ, ONCE, Stop date: 10/26/16 15:27:00 CORPORATE REAL ESTATE MANAGER lidocaine 2015-11 No Route: IV, Me moria (ANES) 2-13 Drug form: l 21:27: INJ, ONCE, Stop date: 10/26/16 15:27:00 CORPORATE REAL ESTATE MANAGER succinylcho 2015-11 No Route: IV, Memoria line (ANES) 2- Drug form: l 21:27: INJ, ONCE, Stop date: 10/26/16 15:27:00 CORPORATE REAL ESTATE MANAGER ceFAZolin 2015-11 No Route: IV, Me moria (ANES) 2-13 Drug form: l 21:17: INJ, ONCE, Stop date: 10/26/16 15:17:00 CORPORATE REAL ESTATE MANAGER rocuronium 2015-11 No Route: IV, M emoria (ANES) 2-13 Drug form: l 21:17: INJ, ONCE, Stop date: 10/26/16 15:17:00 CORPORATE REAL ESTATE MANAGER midazolam 2015-11 No Route: IV, Me moria (ANES) 2-13 Drug form: l 21:07: SOLN, 00 ONCE, Stop date: 10/26/16 15:07:00 CORPORATE REAL ESTATE MANAGER Meperidine 2015-11 No Notes: Memor ia 2-13 (Same As: l 21:07: Demerol) Ondansetron 2015-11 No Notes: Wily reymundo 2-13 (Same as: l 21:07: Zofran) MEDICATION WASTE Product Size: 4 mg Product Wasted: ___ mg Promethazin 2015-11 No Notes: Do M emoria e 2-13 not give l 21:07: IV push. (Same as: Phenergan) Naloxone 2015-11 No Notes: Memoria 2-13 Same as l 21:07: Narcan Flumazenil 2015-11 No Notes: Memor ia 2-13 (Same as: l 21:07: Romazicon) Morphine 2015-11 No Notes: Memoria 2-13 (Same l 21:07: as:MORPhin [place] 00 e Sulfate) Hydromorpho 2015-11 No Notes: Wily reymundo ne 2-13 Same as l 21:07: Dilaudid Hydralazine 2015-11 No Notes: Wily reymundo 2-13 (Same as: l 21:07: Apresoline ) Push over 5 minutes Labetalol 2015-11 No Notes: Memori a 2-13 (Same as: l 21:07: Normodyne, Trandate) Push over 2 minutes Give bolus over 2-3 minutes. Calcium 2015-11 No 1,000 mL, Memor ia Chloride 2-13 Rate: 125 l 0.0014 21:07: ml/hr, [place] MEQ/ML / 00 Infuse Potassium over: 8 Chloride hr, Route: 0.004 IV, Dosing MEQ/ML / Weight Sodium 176.364 Chloride kg, Total 0.103 Volume: MEQ/ML / 1,000, Sodium Start Lactate date: 0.028 10/26/16 MEQ/ML 15:07:00 Injectable [employer]ATE [employer] MANAGER, Solution Duration: 1 day, Stop date: 10/27/16 15:06:00 CORPORATE REAL ESTATE MANAGER LR 1000 mL 2015-11 No Route: IV, M emoria INJ (ANES) 2-13 Total l 20:32: Volume: [place] 00 1,000, Start date: 10/26/16 14:32:00 CORPORATE [employer] ESTATE MANAGER, Stop date: 10/26/16 15:32:00 CORPORATE [employer] ESTATE MANAGER Ancef 2015-11 No Notes: Memoria 2-13 Same as: l 04:00: Ancef Meng lisinopril Yes 5 mg = 1 Mem oria 5 mg oral 8-12 tab, PO, l tablet 15:41: Daily, # [place] 00 30 tab, 2 Refill(s) Aspirin 81 Yes 81 mg = 1 Me moria MG Enteric 8-12 tab, PO, l Coated 15:41: Daily, # Meng Tablet 00 30 tab, 2 Refill(s) Aspirin 81 No Notes: Do Me moria MG Enteric 812 not crush l Coated 14:00: or chew. Meng Tablet 00 (Same As: Ecotrin) Lasix No Notes: Memoria 8-12 (Same as: l 11:44: Lasix) [place] 00 Dulcolax No 5 mg, 1 Memori a Laxative 8-12 tab, l 01:00: Route: PO, Drug form: ECTAB, Q6H, Dosing Weight 183.182, kg, PRN Constipati on, Start date: 06/24/16 20:00:00 CDT, Duration: 30 day, Stop date: 07/24/16 19:59:00 CDT Milk of No Notes: Memoria Magnesia 812 (Same as: l 00:59: Milk of Magnesia, MOM) Lisinopril No Notes: Memor ia 811 (Same as: l 17:00: Prinivil, Zestril) Acetaminoph No Notes: Do M emoria en 8-11 not exceed l 14:20: 4 gm/day. Meng (Same as: Tylenol) acetaminoph No Notes: Do M emoria en-codeine 8-11 not exceed l #3 14:20: 4gm/day of acetaminop hen. (Same as: Tylenol with Codeine # 3) Calcium No Notes: Memoria Gluconate 06-24 WASTE: F/P l 09:15: - Sink; E [place] - Municipal Trash Bin potassium No Notes: Memori a phosphate + 06-24 (Same as: l sodium 09:15: K chloride 00 Phosphate. 0.9% INJ ) 1 mMol 250 mL phoshate has 1.47 mEq potassium Infuse over 4 hours potassium No Notes: Memori a chloride 11 (Same as: l 09:15: Potassium Chloride) potassium No Notes: Memori a phosphate-s 8-11 (Same as: l odium 09:15: Neutra-Ron Manuelito n phosphate 00 s) Each 250 mg-278 1.25 gm mg-164 mg pkt has oral powder 250mg phosphorou s. Mix w/2.5oz water and stir. sodium No 30 mmol, Memoria phosphate + 06-24 10 mL, l sodium 09:15: Route: [place] chloride 00 IVPB, PRN, 0.9% INJ Dosing 250 mL Weight 183.182, kg, PRN Abnormal Lab Result, For NON-ICU Patients Only., Start date: 06/24/16 4:15:00 CDT, Duration: 30 day, Stop date: 07/24/16 4:14:00 CDT Magnesium No Notes: Memori a Sulfate 06-24 WASTE: F/P l 09:15: - Sink; E Meng - Municipal Trash Bin Magnesium No Notes: Memori a Oxide 06-24 (Same as: l 09:15: Mag-Ox Meng 00 400) Magnesium oxide [id number] g elemental magnesium Dose=____m g magnesium oxide (___mg elemental magnesium) heparin No Notes: Memoria 06-24 porcine l 02:00: heparin Meng 00 Ofirmev No Notes: Memoria - Infuse l 18:00: over 15 Meng 00 minutes Do not exceed 4gm/day of acetaminop hen MEDICATION WASTE Product Size: 1000 mg Product Wasted: ___ mg Zofran No Notes: Memoria 8-10 (Same as: l 17:59: Zofran) [place] 00 MEDICATION WASTE Product Size: 4 mg Product Wasted: ___ mg Ondansetron No Notes: Wily reymundo 06-23 (Same as: l 17:02: Zofran) [place] 00 MEDICATION WASTE Product Size: 4 mg Product Wasted: ___ mg Promethazin No Notes: Do M emoria e 06-23 not give l 17:02: IV push. [place] 00 (Same as: Phenergan) Calcium No 1,000 mL, Memor ia Chloride 06-23 Rate: 125 l 0.0014 17:02: ml/hr, Meng MEQ/ML / 00 Infuse Potassium over: 8 Chloride hr, Route: 0.004 IV, Dosing MEQ/ML / Weight Sodium 183.182 Chloride kg, Total 0.103 Volume: MEQ/ML / 1,000, Sodium Start Lactate date: 0.028 06/23/16 MEQ/ML 12:02:00 Injectable CDT, Stop Solution date: 06/24/16 6:00:00 CDT Sodium 2015- No 2,000 mL, Memori a Chloride 8-10 1,000 l 0.154 15:26: ml/hr, Meng MEQ/ML 00 Infuse Injectable Over: 2 Solution hr, Route: IV, 2,000, Drug form: INJ, ONCE, Priority: STAT, Dosing Weight 183.182 kg, Start date: 06/23/16 10:26:00 CDT, Duration: 1 doses or times, Stop date: 06/23/16 10:26:00 CDT chlorhexidi No Notes: Wily reymundo ne 8-10 (Same As: l gluconate 14:00: Peridex) Herm meliza 1.2 MG/ML 00 Mouthwash Lactated No 1,000 mL, Wily reymundo Ringers 8 Rate: 125 l 1,000 mL 13:27: ml/hr, Meng 00 Infuse over: 8 hr, Route: IV, Dosing Weight 183.182 kg, Total Volume: 1,000, Start date: 06/23/16 8:27:00 CDT, Duration: 30 day, Stop date: 07/23/16 8:26:00 CDT chlorhexidi No Notes: Wily reymundo ne 8-10 (Same As: l gluconate 13:27: Peridex) Herm meliza 1.2 MG/ML 00 Mouthwash Ancef No Notes: Memoria 8-10 Same as: l 03:00: Ancef [place] 00 carBAMazepi Yes 200 mg = 1 Memoria ne 200 mg 7-27 tab, PO, l oral tablet 18:48: Daily, 0 He rmann 00 Refill(s) tramadol Yes 50 mg = 1 Wily reymundo hydrochlori 7-27 tab, PO, l de 50 MG 18:47: Q8H, PRN Destinee nn Oral Tablet 00 Pain, # 60 tab, 0 Refill(s) baclofen 10 2016-0 Yes 10 mg = 1 M emoria mg oral 06-09 tab, PO, l tablet 18:47: BID, 0 Meng 00 Refill(s) Vital Signs Vital Name Observation Time Observation Value Comments Source Height 2020-05-05 19:47:00 195.58 cm [facility] [place] Weight 2020-05-05 19:47:00 [facility] [place] BMI Calculated 2020-05-05 19:47:00 Memori al [place] Temperature Oral (F) 2019-10-10 18:17:00 98.6 F [facility] Meng Heart Rate 2019-10-10 18:17:00 [facility] [place] Respitory Rate 2019-10-10 18:17:00 Memori al [place] Systolic (mm Hg) 2019-10-10 18:17:00 Wily rial [place] Diastolic (mm Hg) 2019-10-10 18:17:00 Mem orial [place] Temperature Oral (F) 2019-10-10 13:57:00 98.5 F [facility] Meng Heart Rate 2019-10-10 13:57:00 [facility] Meng Respitory Rate 2019-10-10 13:57:00 Memori al Meng Systolic (mm Hg) 2019-10-10 13:57:00 Wily rial Meng Diastolic (mm Hg) 2019-10-10 13:57:00 Mem orial [place] Temperature Oral (F) 2019-10-10 10:00:00 98.7 F [facility] [place] Heart Rate 2019-10-10 10:00:00 [facility] [place] Respitory Rate 2019-10-10 10:00:00 Memori al [place] Systolic (mm Hg) 2019-10-10 10:00:00 Wily rial Meng Diastolic (mm Hg) 2019-10-10 10:00:00 Mem orial [place] Height 2019-10-02 22:02:00 195.58 cm [facility] [place] Weight 2019-10-02 22:02:00 [facility] [place] BMI Calculated 2019-10-02 22:02:00 Memori al Meng BMI Calculated 2018-10-20 13:21:00 Memori al Meng Weight 2018-10-20 13:21:00 [facility] [place] Height 2018-10-20 13:21:00 195.58 cm [facility] [place] Temperature Oral (F) 2016-10-27 18:23:00 98.8 F [facility] Meng Heart Rate 2016-10-27 18:23:00 [facility] [place] Respitory Rate 2016-10-27 18:23:00 Memori al Meng Systolic (mm Hg) 2016-10-27 18:23:00 Wily rial Meng Diastolic (mm Hg) 2016-10-27 18:23:00 Mem orial Meng Systolic (mm Hg) 2016-10-27 13:23:00 Wily rial [place] Diastolic (mm Hg) 2016-10-27 13:23:00 Mem orial [place] Temperature Oral (F) 2016-10-27 13:23:00 98.0 F [facility] [place] Heart Rate 2016-10-27 13:23:00 [facility] [place] Respitory Rate 2016-10-27 13:23:00 Memori al Meng Temperature Oral (F) 2016-10-27 09:00:00 98.9 F [facility] M[facility] Heart Rate 2016-10-27 09:00:00 [facility] [place] Systolic (mm Hg) 2016-10-27 09:00:00 [facility] Diastolic (mm Hg) 2016-10-27 09:00:00 [facility] [place] Respitory Rate 2016-10-27 09:00:00 [facility] [place] BMI Calculated 2016-10-25 18:14:00 [facility] [place] Weight 2016-10-25 18:14:00 [facility] Height 2016-10-25 18:14:00 195.58 cm [facility] [place] Temperature Oral (F) 2016-06-25 13:00:00 98.7 F [facility] [place] Respitory Rate 2016-06-25 13:00:00 [facility] Heart Rate 2016-06-25 13:00:00 [facility] Systolic (mm Hg) 2016-06-25 13:00:00 Wily rial [place] Diastolic (mm Hg) 2016-06-25 13:00:00 [facility] Respitory Rate 2016-06-25 09:00:00 [facility] Systolic (mm Hg) 2016-06-25 09:00:00 Wily [facility] [place] Diastolic (mm Hg) 2016-06-25 09:00:00 [facility] Heart Rate 2016-06-25 09:00:00 [facility] [place] Temperature Oral (F) 2016-06-25 09:00:00 98.0 F [facility] [place] Systolic (mm Hg) 2016-06-25 05:00:00 Wily [facility] Diastolic (mm Hg) 2016-06-25 05:00:00 [facility] [place] Respitory Rate 2016-06-25 05:00:00 [facility] Heart Rate 2016-06-25 05:00:00 [facility] Temperature Oral (F) 2016-06-25 05:00:00 98.3 F [facility] Height 2016-06-09 18:21:00 195.58 cm [facility] BMI Calculated 2016-06-09 18:21:00 [facility] Weight 2016-06-09 18:21:00 [facility] [place] Procedures Procedure Date / Time Performed Performing Clinician Sourc e Cervical spinal [facility] fusion<sup>1</sup> Colonoscopy [facility] Endoscopy [facility] [place] Gastric bypass [facility] [place] operation<sup>2</sup> Shoulder [facility] reconstruction<sup>3</sup > Encounters Start End Encounter Admission Attending Care Care Encounter Source Date/Time Date/Time Type Type Clinicians Facility Department ID 2019-10-09 Inpatient [facility] [id number] Mem oria 05:39:00 l Meng [facility] 2020-05-05 2020-05-05 Outpatient Primomo, [facility] [id number] 14:45:00 23:59:59 Dallin Fraga 2020-01-14 2020-01-14 [facility] [id number] 09:00:00 09:00:00 Dallin Fraga 2019-12-18 2019-12-18 Outpatient [facility], [facility] [id number] 09:00:00 23:59:59 Dallin Fraga 2019-10-09 2019-10-10 Outpatient Primomo, [facility] [id number] 05:39:00 16:30:00 Dallin Fraga 2018-10-20 2018-10-20 Outpatient [facility] [id number] 06:29:00 10:45:00 Dallin Fraga 2018-08-25 2018-08-25 [facility] [id number] 08:00:00 08:00:00 Dallin Fraga 2016-10-26 2016-10-27 Outpatient Primomo, [facility] [id number] 09:22:00 17:25:00 Dallin Fraga 2016-06-23 2016-06-25 Outpatient [facility] [id number] 05:14:00 14:58:00 Dallin Bk [place] Results Test Description Test Time Test Comments Results Result Sourc e Comments CHEM PANEL 2019-10-10 88 [facility] 12:29:00 [place] CHEM PANEL 2019-10-10 11 [facility] 12:29:00 [facility] CHEM PANEL 2019-10-10 0.92 [facility] 12:29:00 [facility] CHEM PANEL 2019-10-10 141 [facility] 12:29:00 [facility] CHEM PANEL 2019-10-10 3.8 [facility] 12:29:00 [place] CHEM PANEL 2019-10-10 106 [facility] 12:29:00 [facility] CHEM PANEL 2019-10-10 27 [facility] 12:29:00 [place] CHEM PANEL 2019-10-10 8.3 [facility] 12:29:00 [place] CHEM PANEL 2019-10-10 101 [facility] 12:29:00 [place] CHEM PANEL 2019-10-10 11.8 [facility] 12:29:00 [facility] HEMATOLOGY 2019-10-10 Normal [facility] 12:29:00 (10/10/19 6:29 Meng AM) HEMATOLOGY 2019-10-10 68.8 [facility] 12:29:00 [facility] HEMATOLOGY 2019-10-10 19.8 [facility] 12:29:00 [facility]eng HEMATOLOGY 2019-10-10 10.3 [facility] 12:29:00 [place] HEMATOLOGY 2019-10-10 0.8 [facility] 12:29:00 [facility] HEMATOLOGY 2019-10-10 0.3 [facility] 12:29:00 [facility] HEMATOLOGY 2019-10-10 5.2 [facility] 12:29:00 [place] HEMATOLOGY 2019-10-10 1.5 [facility] 12:29:00 [facility] HEMATOLOGY 2019-10-10 0.8 [facility] 12:29:00 [facility]eng HEMATOLOGY 2019-10-10 0.1 [facility] 12:29:00 Megn HEMATOLOGY 2019-10-10 3+ [facility] 12:29:00 *NA*(10/10/19 [place] 6:29 AM) HEMATOLOGY 2019-10-10 1+ (10/10/19 [facility] 12:29:00 6:29 AM) [place] HEMATOLOGY 2019-10-10 Moderate [facility] 12:29:00 *ABN*(10/10/19 Meng 6:29 AM) HEMATOLOGY 2019-10-10 7.6 [facility] 12:29:00 [place] HEMATOLOGY 2019-10-10 4.76 [facility] 12:29:00 [place] HEMATOLOGY 2019-10-10 9.3 [facility] 12:29:00 [facility] HEMATOLOGY 2019-10-10 29.6 [facility] 12:29:00 [facility] HEMATOLOGY 2019-10-10 62.2 [facility] 12:29:00 [facility] HEMATOLOGY 2019-10-10 12:29:00 Test Item Value Reference Range Interpretation Comme nts MCH (test code = MCH) 19.6 pg 27.0-31.0 [facility] NuqjhpyEQHNFDFANR2554-35-42 12:29:0031.5[facility] HermannHEMATOLOGY 2019-10-10 12:29:0019.7[facility] YqnnrukEXFIPVXNDM3279-91-14 12:29:15836Gbhwydef RskdwuiGFWUQQOAIO3999-71-75 12:29:008.4[facility]annURINE AND JQVVG3697-37-88 22:44:00Yellow *NA*(10/02/19 4:44 PM)[facility] ZRJTF7227-29-97 22:44:00Clear (10/02/19 4:44 PM)[facility] GHGMP5104-98-47 22:44:00 Test Item Value Reference Range Interpretation Comments UA Spec Grav (test code = UA Spec 1.020 1 Grav) [facility] [id number] 22:44:00 Test Item Value Reference Range Interpretation Comments UA pH (test code = UA pH) 6.0 1 5.0-8.0 [facility] IEYWE1138-32-15 22:44:00Negative *NA*(10/02/19 4:44 PM)[facility] EHTNT4779-93-40 22:44:00Negative (10/02/19 4:44 PM) [facility] RPINH5312-60-07 22:44:00Negative (10/02/19 4:44 PM) [facility] AGNZN5816-74-37 22:44:00Negative (10/02/19 4:44 PM) [facility] OQTZL5931-25-82 22:44:001[facility] MFDPG8080-70-39 22:44:00<1[facility]BL[facility] B[facility] GGYQRTX6335-13-79 22:39:00Negative (10/02/19 4:39 PM)[facility]annCHEM RDQDZ2261-94-49 22:39:00 69[facility]annCHEM XPHIX4415-75-15 22:39:0018[facility]annCHEM PANEL 2019-10-02 22:39:000.95[facility]annCHEM NWKQB1491-79-86 22:39:03306Ufdhqlau HermannCHEM KMPPU4773-27-61 22:39:004.6[facility]annCHEM PCESU7595-39-57 22:39:93564Spaktgyr HermannCHEM YUAAU5971-79-01 22:39:0031[facility]annCHEM BUZCN9242-51-93 22:39:009.0[facility]annCHEM SIRPL9672-56-42 22:39:004.1 [facility]annCHE[facility] QEKOJ1460-54-86 22:39:0017[facility]annCHEM PANEL 2019-10-02 22:39:0097[facility]annCHEM JNOZQ1903-98-98 22:39:007.9[facility]annCHEM SXXAH9043-73-76 22:39:0023[facility]annCHEM UIYKO8465-75-71 22:39:0080[facility]annCHEM EVFME8246-25-34 22:39:001.0[facility]annCHEM CEHGU9402-14-21 22:39:009.6[facility]annCHEM MZEWY7152-92-87 22:39:00 Test Item Value Reference Range Interpretation Comments B/C Ratio (test code = B/C Ratio) 19 1 6-25 [facility]annCHE[facility] RXHHO8292-46-31 22:39:003.8[facility]annCHEM PANEL 2019-10-02 22:39:00 Test Item Value Reference Range Interpretation Comments A/G Ratio (test code = A/G Ratio) 1.1 1 0.7-1.6 [facility]annCHE[facility] BVWUO6848-57-06 22:39:82587.4[facility] HermannCHEM PANEL 2019-10-02 22:39:0031.1[facility] NslmahbWTSVBXPWGT1729-39-58 22:39:005.4[facility] MkrbqquMDMISSTHIT9306-03-48 22:39:005.50[facility] KzqoojwRREEZSSDCL4528-70-48 22:39:0010.8[facility] NwplzweQBFYDGKNQG6043-90-00 22:39:0034.7[facility] RUBCJLIUFL3852-09-17 22:39:0063.2[facility] IiynayiPNNQFBMGJE4170-84-64 22:39:00 Test Item Value Reference Range Interpretation Comments MCH (test code = MCH) 19.7 pg 27.0-31.0 [facility] JenaityIHJZRXVGDD9252-19-68 22:39:0031.2[facility] HermannHEMATOLOGY 2019-10-02 22:39:0021.0[facility] QcqedvpCWFVZROULB2850-84-72 22:39:83051Rbxwyfxc DozvrrcDPGWVJPHDX8698-92-31 22:39:008.4[facility] ErmhbuxZWIXERCSYY6912-18-02 22:39:00 Test Item Value Reference Range Interpretation Comments PT (test code = PT) 13.0 s 12.0-14.7 [facility] DhkuqwiKGXBDUVWNV8982-00-12 22:39:00 Test Item Value Reference Range Interpretation Comments PTT (test code = PTT) 33.9 s 22.9-35.8 [facility] BbylumsSAAWOPGOVG2483-58-23 22:39:00 Test Item Value Reference Range Interpretation Comments INR (test code = INR) 1.00 1 0.85-1.17 [facility] KvnqvtrJBFTZWPOVA9140-87-81 22:39:0061.2[facility] HermannHEMATOLOGY 2019-10-02 22:39:0022.6[facility] DrvsptiZVVZCLZHXZ6295-30-68 22:39:0010.3[facility] QguxbhoJHWUPQEZOF2283-79-06 22:39:004.8[facility] ZqkykslHMQDYRRIRZ4183-58-13 22:39:001.1[facility] YzqmijgKMHRMRBFNN0040-52-85 22:39:003.3[facility] LAYSDLTLGQ6510-85-68 22:39:001.2[facility] FfgnlxkWOLGJVLJRZ9339-77-71 22:39:000.6 [facility]landsDewnvsnGMRYGKYILR0934-73-57 22:39:000.3[facility]HE[facility] 2019-10-02 22:39:000.1[facility] HqvtwrqXCMIFYZVLW7512-36-49 22:39:001+ *ABN*(10/02/19 4:39 PM)[facility]fbvnkSKNODUQVDU3680-[facility]-44 22:39:002+ *ABN*(10/02/19 4:39 PM)[facility]ellandXdeqzzfHWJJJIIFBF5663-61-17 22:39:001+ (10/02/19 4:39 PM)[facility]BwnnolwJFQOAKLPPM7903-12-89 22:39:001-3 per HPF (10/02/19 4:39 PM)[facility]ennialBnmlhirZRXB2899-17-16 15:29:00 RUN DATE: 05/08/19 [facility] - LAB *LIVE* PAGE 1 RUN TIME: 1529 Specimen Inquiry RUN USER: INTERFACE PATIENT: TAVO MARIN LOC: AroldoAshley2S U #: [id number] AGE/SX: 44/M ROOM: [facility] RE05/03/19REG DR: Edilberto Grijalva MD : 73 BED: 1 DIS: 05/05/19 STATUS: DIS Dominick TLOC: SPEC #: [id number] RECD: 05/07/19 STATUS: ANNE LLOYD #: [id number] DIANE: 05/05/[address]: Edilberto Grijalva MD ENTERED: 05/07/19 SP TYPE: SURG OTHR DR: DOES_NOT KNOW No Primary or Family Physician Self Referred Misael Ragsdale MDORDERED: AB/PAS JULIO/2, SURG PATH LVL 4/2, PATH STAIN GROU/2 COPIES TO: DOES_NOT KNOW No Primary or Family Physician Self Referred Misael Ragsdale MD [address] [place] [address] [place] [address] [place] [address] [email or web address] [email or web address]: TISSUE ID BLK PCS ADAIR LEV PROCEDURE DISPOSITION ____ ___ ___ ___ STOMACH, NOS A 1 1 AB/PAS JULIO STOMACH, NOS A 1 2 PATH STAIN GROU STOMACH, NOS B 1 1 AB/PAS JULIO STOMACH, NOSB 1 2 PATH STAIN GROU PROCEDURES: ALBLUE (05/07/19) PAS (05/07/19) SURG PATH LVL 4 (05/07/19) PATH STAIN GROU (05/07/19903) TISSUES: A. STOMACH, NOS - ANASTOMOTIC ULCER B. STOMACH, NOS - STOMACH CONTINUED ON NEXT PAGE RUN DATE: 05/08/19 [facility] - LAB *LIVE* PAGE 2 RUN TIME: 1529 Specimen Inquiry RUN USER: INTERFACE SPEC #: [id number] PATIENT: TAVO MARIN #[id number] (Continued) CLINICAL HISTORY GI BLEED CPT CODES CPT CODE(S): 75306Z9 , 84827W3 , 03584B9 , , , , FINAL DIAGNOSIS A. Stomach, anastomotic ulcer, biopsy: SMALL BOWEL MUCOSA WITH MILD CHRONIC INFLAMMATION ANASTOMOTIC SITE B. Stomach, biopsy: MILD CHRONIC GASTRITISNEGATIVE FOR INTESTINAL METAPLASIA, DYSPLASIA, OR MALIGNANCY NEGATIVE FOR HELICOBACTER PYLORI ORGANISMS GROSS DESCRIPTION A. Anastomotic ulcer biopsy. Received in formalin is a soares tissuefragment, 0.5 cm, all as A. B. Stomach biopsy. Received in formalin are three soares tissue fragments, 0.2 - 0.5 cm, all as B. ba/nr Grossing performed at [facility] Pathology, [address] [place] [address], [address], [place] [address]. Extraction Operator: Eliot Jameson M.D. MICROSCOPIC DESCRIPTION A. Anastomotic ulcer biopsy. Sections demonstrate small bowel mucosa with mildinflammation and architectural distortion, consistent with anastomotic site. No gastric-type mucosa is present. PAS confirms absence of gastric type mucosa. The Diff Quik stain demonstrates no evidence of Helicobacter pylori organisms. No dysplasia or malignancy is seen. B. Stomach biopsy. Sections demonstrate gastric mucosa with mild chronic inflammation. No dysplasia or malignancy is identified. Alcian blue/PAS confirms absence of intestinal metaplasia. The Diff Quik stain demonstrates no evidence of Helicobacter pylori organisms. Signed SIGNATURE ON FILE Kingsley Tompkins 05/08/19 1529 END OF REPORT PROTHROMBIN [id number] 07:51:00 Test Item Value Reference Range Interpretation Comments PT PATIENT (test code = PTP) 13.5 SECONDS 9.3-12.9 H INTERNATIONAL NORMAL RATIO 1.17 INR Unit 0.8-1.2 N (test code = INR) BASIC METABOLIC [id number] 07:32:00 Test Item Value Reference Range Interpretation Comments SODIUM (test code = NA) 141 mmol/L 134-147 N POTASSIUM (test code = 4.3 mmol/L 3.4-5.0 N K) CHLORIDE (test code = 107 mmol/L 100-108 N CL) CARBON DIOXIDE (test 30 mmol/L 21-32 N code = CO2) ANION GAP (test code = 4.0 GAP calc 4.0-15.0 N GAP) GLUCOSE (test code = 82 MG/DL 70-110 N GLU) BLOOD UREA NITROGEN 14 MG/DL 7-18 N (test code = BUN) GLOMERULAR FILTRATION >=60 max estimate >60 RATE (test code = GFR) estGFR CREATININE (test code = 0.8 MG/DL 0.8-1.3 N CREAT) CALCIUM (test code = CA) 8.2 MG/DL 8.5-10.1 L CBC W/AUTO [id number] 07:30:00 Test Item Value Reference Range Interpretation Comments WHITE BLOOD CELL (test code = 4.8 K/mm3 3.5-11.0 N WBC) RED BLOOD CELL (test code = RBC) 3.17 M/mm3 4.70-6.10 L HEMOGLOBIN (test code = HGB) 9.3 G/DL 12.3-15.9 L HEMATOCRIT (test code = HCT) 28.4 % 35.8-46.7 L MEAN CELL VOLUME (test code = 89.6 Fl 86.3-98.9 N MCV) MEAN CELL HGB (test code = MCH) 29.3 pg 28.9-34.4 N MEAN CELL HGB CONCETRATION (test 32.7 G/DL 32.1-34.5 N code = MCHC) RED CELL DISTRIBUTION WIDTH (test 13.5 SD 11.5-14.5 N code = RDW) PLATELET COUNT (test code = PLT) 217.0 K/mm3 150-450 N MEAN PLATELET VOLUME (test code = 8.60 fL 7.0-9.6 N MPV) NEUTROPHIL % (test code = NT%) 56.3 % 40-76 N LYMPHOCYTE % (test code = LY%) 31.3 % 20.5-51.1 N MONOCYTE % (test code = MO%) 7.7 % 1.7-9.3 N EOSINOPHIL % (test code = EO%) 4.1 % 0.0-6.0 N BASOPHIL % (test code = BA%) 0.6 % 0.0-2.0 N NEUTROPHIL # (test code = NT#) 2.71 K/mm3 1.8-7.6 N LYMPHOCYTE # (test code = LY#) 1.5 K/mm3 0.6-3.0 N MONOCYTE # (test code = MO#) 0.4 K/mm3 0.2-1.5 N EOSINOPHIL # (test code = EO#) 0.2 K/mm3 0.0-0.4 N BASOPHIL # (test code = BA#) 0.0 K/mm3 0.0-0.2 N MANUAL DIFF REQUIRED (test code = NO DIFF/SCN CRITERIA MDIFF) CBC W/AUTO [id number] 14:33:00 Test Item Value Reference Range Interpretation Comments WHITE BLOOD CELL (test code = 5.8 K/mm3 3.5-11.0 N WBC) RED BLOOD CELL (test code = RBC) 3.10 M/mm3 4.70-6.10 L HEMOGLOBIN (test code = HGB) 9.4 G/DL 12.3-15.9 L HEMATOCRIT (test code = HCT) 27.3 % 35.8-46.7 L MEAN CELL VOLUME (test code = 88.1 Fl 86.3-98.9 N MCV) MEAN CELL HGB (test code = MCH) 30.3 pg 28.9-34.4 N MEAN CELL HGB CONCETRATION (test 34.4 G/DL 32.1-34.5 N code = MCHC) RED CELL DISTRIBUTION WIDTH (test 13.6 SD 11.5-14.5 N code = RDW) PLATELET COUNT (test code = PLT) 221.0 K/mm3 150-450 N MEAN PLATELET VOLUME (test code = 8.50 fL 7.0-9.6 N MPV) NEUTROPHIL % (test code = NT%) 56.0 % 40-76 N LYMPHOCYTE % (test code = LY%) 33.6 % 20.5-51.1 N MONOCYTE % (test code = MO%) 8.0 % 1.7-9.3 N EOSINOPHIL % (test code = EO%) 2.1 % 0.0-6.0 N BASOPHIL % (test code = BA%) 0.3 % 0.0-2.0 N NEUTROPHIL # (test code = NT#) 3.23 K/mm3 1.8-7.6 N LYMPHOCYTE # (test code = LY#) 1.9 K/mm3 0.6-3.0 N MONOCYTE # (test code = MO#) 0.5 K/mm3 0.2-1.5 N EOSINOPHIL # (test code = EO#) 0.1 K/mm3 0.0-0.4 N BASOPHIL # (test code = BA#) 0.0 K/mm3 0.0-0.2 N MANUAL DIFF REQUIRED (test code = NO DIFF/SCN CRITERIA MDIFF) COMPREHENSIVE METABOLIC [id number] 04:02:00 Test Item Value Reference Range Interpretation Comments SODIUM (test code = NA) 144 mmol/L 134-147 N POTASSIUM (test code = 3.6 mmol/L 3.4-5.0 N K) CHLORIDE (test code = 109 mmol/L 100-108 H CL) CARBON DIOXIDE (test 30 mmol/L 21-32 N code = CO2) ANION GAP (test code = 5.0 GAP calc 4.0-15.0 N GAP) GLUCOSE (test code = 91 MG/DL 70-110 N GLU) BLOOD UREA NITROGEN 25 MG/DL 7-18 H (test code = BUN) GLOMERULAR FILTRATION >=60 max estimate >60 RATE (test code = GFR) estGFR CREATININE (test code = 0.8 MG/DL 0.8-1.3 N CREAT) TOTAL PROTEIN (test code 5.8 G/DL 6.4-8.2 L = PROT) ALBUMIN (test code = 3.0 G/DL 3.4-5.0 L ALB) GLOBULIN (test code = 2.8 GM/dL GLOB) ALBUMIN/GLOBULIN RATIO 1.1 RATIO 1.2-2.2 L (test code = A/G) CALCIUM (test code = CA) 8.0 MG/DL 8.5-10.1 L BILIRUBIN TOTAL (test 1.00 MG/DL 0.2-1.2 N code = BILT) SGOT/AST (test code = 10 Unit/L 15-37 L AST) SGPT/ALT (test code = 16 Unit/L 12-78 N ALT) ALKALINE PHOSPHATASE 55 Unit/L 50-136 N TOTAL (test code = ALKP) CBC W/AUTO [id number] 03:41:00 Test Item Value Reference Range Interpretation Comments WHITE BLOOD CELL (test code = 7.7 K/mm3 3.5-11.0 N WBC) RED BLOOD CELL (test code = RBC) 3.19 M/mm3 4.70-6.10 L HEMOGLOBIN (test code = HGB) 9.4 G/DL 12.3-15.9 L HEMATOCRIT (test code = HCT) 28.7 % 35.8-46.7 L MEAN CELL VOLUME (test code = 90.0 Fl 86.3-98.9 N MCV) MEAN CELL HGB (test code = MCH) 29.5 pg 28.9-34.4 N MEAN CELL HGB CONCETRATION (test 32.8 G/DL 32.1-34.5 N code = MCHC) RED CELL DISTRIBUTION WIDTH (test 13.5 SD 11.5-14.5 N code = RDW) PLATELET COUNT (test code = PLT) 227.0 K/mm3 150-450 N MEAN PLATELET VOLUME (test code = 8.50 fL 7.0-9.6 N MPV) NEUTROPHIL % (test code = NT%) 60.9 % 40-76 N LYMPHOCYTE % (test code = LY%) 28.7 % 20.5-51.1 N MONOCYTE % (test code = MO%) 9.1 % 1.7-9.3 N EOSINOPHIL % (test code = EO%) 1.0 % 0.0-6.0 N BASOPHIL % (test code = BA%) 0.3 % 0.0-2.0 N NEUTROPHIL # (test code = NT#) 4.68 K/mm3 1.8-7.6 N LYMPHOCYTE # (test code = LY#) 2.2 K/mm3 0.6-3.0 N MONOCYTE # (test code = MO#) 0.7 K/mm3 0.2-1.5 N EOSINOPHIL # (test code = EO#) 0.1 K/mm3 0.0-0.4 N BASOPHIL # (test code = BA#) 0.0 K/mm3 0.0-0.2 N MANUAL DIFF REQUIRED (test code = NO DIFF/SCN CRITERIA MDIFF) CHEM [id number] 10:05:0089[facility] HermannCHEM GPIXR4925-80-88 10:05:0016.2 [facility] HermannCHEM [id number] 10:05:0026[facility] HermannCHEM PANEL 2016-10-27 10:05:001.03[facility] HermannCHEM VEBMU8943-73-92 10:05:0011[facility] HermannCHEM VXFOX1085-06-98 10:05:55258Mgkhkpuo HermannCHEM CNWBX0277-89-10 10:05:008.4[facility] HermannCHEM KNRAG4961-59-42 10:05:07669Jrumjzau HermannCHEM FGAOK4063-53-37 10:05:004.2[facility] HermannCHEM EXTOH0135-72-66 10:05:51811 [facility] DdsxfksVDJCHCBBRD8871-47-14 10:05:31244Npszffbt HermannHEMATOLOGY 2016-10-27 10:05:007.1[facility] NtvicoeLOSYKDORBP8058-25-15 10:05:0013.2[facility] JboqbvwOAQSGDMTXT2260-55-07 10:05:0034.0[facility] LpehgwdVOYUHVIUPB1453-08-38 10:05:0040.6[facility] CgrwlyrZWWSJGIUYG1066-18-63 10:05:0013.8[facility] Meng UNBDNRGDHB4698-50-24 10:05:00 Test Item Value Reference Range Interpretation Comments MCH (test code = MCH) 28.3 pg 27.0-31.0 [facility] BtdjaygLFWVEGLRXC1287-26-34 10:05:0083.2[facility] HermannHEMATOLOGY 2016-10-27 10:05:0010.9[facility] IrevovvBDACCNPOXX1556-13-81 10:05:004.88[facility] KqpsesvRANQIMIQBK2009-75-33 10:05:00 Test Item Value Reference Range Interpretation Comments PTT (test code = PTT) 30.7 s 22.9-35.8 [facility] XzjhjtmMTKCTJDLXZ8441-13-27 10:05:00 Test Item Value Reference Range Interpretation Comments PT (test code = PT) 14.9 s 12.0-14.7 [facility] LolzdtoUPMGYLGJDT9469-62-34 10:05:001.15[facility] HermannHEMATOLOGY 2016-10-27 10:05:000.7[facility] JfsfaeqQMMNVVEBYL9970-99-29 10:05:009.6[facility] GcqxdfeTSZWXBFQMT5821-28-52 10:05:000.5[facility] AtgedstKITWPBXIYI6579-53-37 10:05:0088.8[facility] PhkaamkVYXFDPRNZS3186-12-97 10:05:006.9[facility] Meng ZQOAZZFJBO1402-11-20 10:05:004.1[facility] CxcotrfHMSEPGVRTX8651-86-98 10:05:000.2 [facility] HermannBLOOD BANK MPSJUJP8705-09-97 19:18:00Negative (10/26/16 1:18 PM) [facility] HermannCHEM YHWDT3315-96-21 19:18:0082[facility] HermannCHEM PANEL 2016-10-26 19:18:0033[facility] HermannCHEM OQHIB8084-99-58 19:18:001.10[facility] HermannCHEM BKSKN4372-02-48 19:18:0052[facility] HermannCHEM BUMTU8169-81-34 19:18:0021[facility] HermannCHEM TMKQT2070-22-01 19:18:0076[facility] HermannCHEM FTXQI6590-95-70 19:18:0012[facility] HermannCHEM RTHVY4261-33-23 19:18:004.2 [facility] HermannCHEM ZVLOV6823-74-77 19:18:43774Kfpcupdo HermannCHEM PANEL 2016-10-26 19:18:004.0[facility] HermannCHEM JJBBU7960-18-59 19:18:009.1[facility] HermannCHEM IXCWF7673-05-00 19:18:17740Aympujeh HermannCHEM KLGVP8359-50-56 19:18:0054[facility] HermannCHEM LUXNK7388-75-33 19:18:001.5[facility] HermannCHEM PKQGF4058-14-52 19:18:007.8[facility] HermannCHEM AYYGX2528-83-52 19:18:0011 [facility] HermannCHEM QWVPO9033-70-07 19:18:0016.2[facility] HermannCHEM PANEL 2016-10-26 19:18:001.1[facility] HermannCHEM JVGHU2050-18-55 19:18:003.8[facility] HermannCHEM HNETH1979-99-17 19:18:0026[facility] CcrvyyjFSJJUVOSGT0503-67-80 19:18:005.30[facility] IpxxborCCXIFVROUU7974-76-49 19:18:005.6[facility] [place] FNJTMKHWBP0438-87-07 19:18:00 Test Item Value Reference Range Interpretation Comments MCH (test code = MCH) 28.2 pg 27.0-31.0 [facility] UwhmisuQGGAGANSGP9290-28-24 19:18:0083.6[facility] HermannHEMATOLOGY 2016-10-26 19:18:0044.3[facility] OnzwijaYFMRIGBPLC2200-22-49 19:18:0014.9[facility] DhkkbvgTJIPNRYEFW3891-11-30 19:18:0013.5[facility] WivmvgmSGPDNGEAWL6495-90-62 19:18:0033.7[facility] XlvzjfzRMIXHNAYWB7070-35-75 19:18:66287Dswytysv Meng VRMUMPCCIF5242-97-97 19:18:006.9[facility] XxgabgbPAADLIEQNU4196-43-30 19:18:00 1.09[facility] OadoquxRWFYDODQJU1138-43-42 19:18:00 Test Item Value Reference Range Interpretation Comments PT (test code = PT) 14.3 s 12.0-14.7 [facility] OymhedkRPBUCFZLSX9392-52-42 19:18:00 Test Item Value Reference Range Interpretation Comments PTT (test code = PTT) 32.4 s 22.9-35.8 [facility] BysgskxDVAWYTZTAP7398-34-58 19:18:000.2[facility]annHEMATOLOGY 2016-10-26 19:18:001.5[facility] OvblgjvKVYWOPNTXY1846-77-36 19:18:003.5[facility] EfkbyjqCKNXIJGQRB0676-54-19 19:18:000.9[facility] GodjytqETTRSZUZMH9938-71-44 19:18:000.5[facility] KasgbwjAZNHSIPXQV5616-44-32 19:18:008.1[facility] [place] PRKXRCORVH9119-05-31 19:18:002.8[facility] QbwlwnpBHYHTTWBJM5959-78-44 19:18:00 26.5[facility] FrgwkoyNPLGUECKYG4714-67-32 19:18:0061.7[facility] HermannPARATHYROID ZPSNFUJ5267-46-80 19:18:0058.1[facility] HermannCHEM GXFOR5687-70-31 16:58:001.7 [facility]annCHEM XWQBT1031-62-57 16:58:001.15[facility] HermannCHEM PANEL 2016-06-25 16:58:0078[facility]annCHEM PTFAN3333-29-72 16:58:0012.5[facility] HermannCHEM MXXBE8256-66-10 16:58:85352Nthotspt HermannCHEM LUVAJ8213-19-90 16:58:0031[facility] HermannCHEM XIEXU0756-29-93 16:58:008.4[facility] HermannCHEM LOCQE0711-01-28 16:58:09423Hoggffhi HermannCHEM TFKNQ2843-53-98 16:58:007 [facility]annCHEM WRIQA1671-92-16 16:58:30933Elvetasw HermannCHEM PANEL 2016-06-25 16:58:003.5[facility] HermannCARDIAC ODACYKX2806-27-25 07:43:006.1 [facility]annCARDIAC FDYETEQ0854-55-47 07:43:002.8[facility] HermannCARDIAC TWTDMJM0200-46-67 07:43:78883Fgemavli HermannCARDIAC ZPZDEYU8374-12-34 07:43:00 1.59[facility]annCARDIAC IPLSOWK6264-23-58 06:15:007.3[facility] HermannCARDIAC YIBVIVP0432-70-06 06:15:83566Tfjcaeyu HermannCARDIAC QTHYDTW1244-71-90 06:15:00 3.0[facility] HermannCARDIAC WMQSQVB4733-08-97 06:15:002.15[facility] [place] ETDNWIQZHPJM6155-27-50 06:15:0013.6[facility] BnxcdgdNHLFXBDUHGGJ4208-14-15 06:15:008.1[facility] CmhcbyiFDEBDQPEAPFN7530-72-14 06:15:003.6[facility] [place] HIJEJUJAGPXK8016-01-87 06:15:41745Fuoousfr YgfaagkBAFQBVQWZNGT8581-87-63 06:15:009[facility] LaeubpyXWAUQGQKWSWI1144-19-65 06:15:0027[facility] Meng TRBVYUTYCSMR0910-28-43 06:15:73392Ctarhkzq TexkirbGXGLTCRXZDAT5385-33-83 06:15:32061Bbkeviau YzudexkNFDCCERMZXKO8858-86-48 06:15:0073[facility] PGWZFJZPOJQR5873-60-82 06:15:001.21[facility] HgexmciBPELEXQLCF0308-29-61 06:15:00 7.4[facility] BcmdrdlOUDMTJEFMK1532-73-56 06:15:62374Jeikxydv HermannHEMATOLOGY 2016-06-24 06:15:00 Test Item Value Reference Range Interpretation Comments MCH (test code = MCH) 29.5 pg 27.0-31.0 [facility] YzclhqpSMERIITUUA1794-39-07 06:15:0013.9[facility]annHEMATOLOGY 2016-06-24 06:15:0084.3[facility] KquyppjEJQDVKJIQR8725-37-07 06:15:0034.9[facility] VauqgefMYJFTEDNZU9803-01-25 06:15:008.1[facility] RlpsxwbQVIQUMIHJM5055-83-59 06:15:0014.5[facility] IfehwifWEDFJHKQTK9464-16-36 06:15:004.92[facility] [place] GXDDUKNWRL8119-76-05 06:15:0041.5[facility] NfwskqxWTNMKIXTHT1558-13-62 06:15:00 Test Item Value Reference Range Interpretation Comments PT (test code = PT) 15.2 s 12.0-14.7 [facility] DqzopptZDQDGCXFUZ5569-74-95 06:15:001.17[facility]annHEMATOLOGY 2016-06-24 06:15:00 Test Item Value Reference Range Interpretation Comments PTT (test code = PTT) 30.6 s 22.9-35.8 [facility] SkkyitqYDBMRHXLIG8631-66-15 06:15:001.3[facility]annHEMATOLOGY 2016-06-24 06:15:006.9[facility] UafcntzHXDEFUPUCE8201-94-40 06:15:0021.2[facility] LvpsolaKGYJLLCINF7162-78-32 06:15:0070.4[facility] EzfxslgWYWTMOLIYR8117-16-55 06:15:000.2[facility] EpinrkeFWXYKUXYTQ7147-34-26 06:15:005.7[facility] [place] MTIAWWVAID2072-51-99 06:15:000.6[facility] AuhhnvrQNOCAIZNSX1372-35-29 06:15:001.7 [facility] LxbchzsDBXPPXEBNX3560-96-09 06:15:000.1[facility] HermannCARDIAC ENZYMES 2016-06-23 22:13:007.5[facility] HermannCARDIAC OXRWZVT8422-98-77 22:13:003.5 [facility]annCARDIAC VLLRCNH1293-99-97 22:13:74598Tgswbfkz HermannCARDIAC BANFKKH0574-52-65 22:13:002.61[facility] HermannBACTERIAL - FUPRVDSA4740-01-73 15:54:00Negative (06/23/16 10:54 AM)[facility] HermannCHEM BFMTA1757-58-16 15:53:00 4.0[facility] HermannCHEM IKXRP4369-03-43 15:53:002.1[facility] HermannCHEM PANEL 2016-06-23 15:53:001.2[facility] LgowlmfIBGMJKAOZCCW1386-45-99 15:53:0018.7 [facility] UfftbttNQCNADSINTDJ3755-21-98 15:53:0012[facility] HermannELECTROLYTES 2016-06-23 15:53:001.2[facility] PfiawtgUABDTMSWPVIE7822-49-42 15:53:003.0[facility] NqdmuaxLQQOWMTJSZUR0797-27-35 15:53:0091[facility] CfowyzvXXQJRUPNSUEX6129-13-66 15:53:55766Lftkfmgt DakolwdKYMBZRUDBWMW7815-62-52 15:53:003.5[facility] [place] WKUBDDFFIJBH4699-25-31 15:53:001.01[facility] VktidvgGNZZWYQYXHXC6611-08-68 15:53:0020[facility] YkjtwslERAXWNPLWEMC6942-52-55 15:53:58154Rpooshwf Meng RDSBKBMGGRBZ7678-04-84 15:53:0098[facility] EvvyahtYLMLQMOHWMRK8351-13-28 15:53:00 12[facility] RihunqdPUGBZJFDLPTJ2261-26-33 15:53:006.5[facility] HermannELECTROLYTES 2016-06-23 15:53:000.9[facility] NonyihnEOZLTZFVLATR7827-55-02 15:53:0059[facility] FugsdvvABFUCGRNQTHR6738-16-71 15:53:003.7[facility] YceqihwPPHXBPTEXHLQ4373-03-90 15:53:008.2[facility] JtwzzxgLBPOYDTFUZOJ5108-17-63 15:53:71242Bdyrhaqz [place] SIQGMIFKHWET9595-19-54 15:53:63404Beacvewl XdnkoioYQATNSSIIN0829-36-26 15:53:00 0.2[facility] FguknpzNQKGDAZOID5088-63-22 15:53:000.8[facility] HermannHEMATOLOGY 2016-06-23 15:53:007.7[facility] FbyorkhCAEECSEOXH3699-68-22 15:53:000.9[facility] YalubhfFHGGOVSANH9732-96-04 15:53:000.1[facility] IeugnfqXCULJXPHRN7997-53-08 15:53:000.5[facility] RvpbgtnERQZTWJXDX8356-77-53 15:53:0084.2[facility] Meng TUGGHDZEEN6914-60-40 15:53:005.2[facility] SbsftjdVTKNRKARCZ8936-37-66 15:53:00 Normal (06/23/16 10:53 AM)[facility] WmwdhygWEEMCRXWNX4938-28-45 15:53:009.6 [facility] XyqrcquMLFQBPTCIP6014-89-08 15:53:00Normal (06/23/16 10:53 AM)[facility] HhqmucsSQDWKEIGPU5517-25-29 15:53:001.17[facility] MqaevmtXELZEHULFR1108-02-63 15:53:00 Test Item Value Reference Range Interpretation Comments PT (test code = PT) 15.2 s 12.0-14.7 [facility] GkclkfhWRBDJZHRGT8141-97-69 15:53:00 Test Item Value Reference Range Interpretation Comments PTT (test code = PTT) 30.2 s 22.9-35.8 [facility] HmircncKAIBCDAFUZ3097-37-99 15:53:007.0[facility] HermannHEMATOLOGY 2016-06-23 15:53:0013.4[facility] NnsgnnzMODJEIEILK1886-10-61 15:53:004.77[facility] DogsxxnKAMSBUIGQO2669-07-95 15:53:0013.8[facility] OxlbevlMQIQYRAXRC4655-79-05 15:53:009.2[facility] LanqytiNEUPUNSEQN5872-78-77 15:53:44630Vhjifbkq Meng CQEQPDKVPA3301-67-69 15:53:0034.8[facility] EmfytngYPQGKZKPXU4369-39-35 15:53:00 39.7[facility] LcwycruTHAMRWXNZW4830-91-86 15:53:00 Test Item Value Reference Range Interpretation Comments MCH (test code = MCH) 28.9 pg 27.0-31.0 [facility] EydhdygPIEYJXONQH6750-49-38 15:53:0083.2[facility] HermannBLOOD BANK DDDYWAK3362-89-13 11:00:00Negative (06/23/16 6:00 AM)[facility] HermannCHEM PANEL 2016-06-09 19:12:001.1[facility] HermannCHEM ICNYM7841-21-50 19:12:003.8[facility] HermannCHEM BXVXH9135-13-53 19:12:0011[facility] HermannCHEM OIPAM2244-11-70 19:12:007.9[facility] HermannCHEM YZRMX4880-18-15 19:12:000.7[facility] HermannCHEM RYJTS9760-67-84 19:12:0073[facility]annCHEM CJDNG1024-00-78 19:12:004.1 [facility]annCHEM RWBSH4203-69-53 19:12:0051[facility] HermannCHEM PANEL 2016-06-09 19:12:0024[facility] HermannCHEM SLFAK9948-64-93 19:12:0027[facility] FgslnqfPIVAAKLNDK9041-76-22 19:12:00 Test Item Value Reference Range Interpretation Comments PT (test code = PT) 13.8 s 12.0-14.7 [facility] HjkkypiXUCGRURPVU5164-36-31 19:12:00 Test Item Value Reference Range Interpretation Comments PTT (test code = PTT) 31.5 s 22.9-35.8 [facility] WsjggaiIDHUUXHVXP0235-04-14 19:12:001.03[facility] HermannHEMATOLOGY 2016-06-09 19:12:19801Lfuuvfsc EdtrkjrMFGCZDZQRE0838-00-74 19:12:0032.5[facility] KdeywltWHLBUZOWEZ4838-14-24 19:12:0046.5[facility] SsgnjkkWIBLPLCBKC2523-35-49 19:12:007.2[facility] XzvisyfPHUZDCGGVG8937-36-61 19:12:0013.5[facility] Meng BDEAZNHASP5704-80-30 19:12:0086.0[facility] PjhdmoyDPKRGQLVBA6635-20-38 19:12:00 Test Item Value Reference Range Interpretation Comments MCH (test code = MCH) 27.9 pg 27.0-31.0 [facility] UkovtozNFCDVIYFZZ4921-22-11 19:12:006.8[facility] HermannHEMATOLOGY 2016-06-09 19:12:005.40[facility] CwyfriqXLHFQBGLQK9006-84-47 19:12:0015.1[facility] FesqqqyEDMGPVYUPC0957-74-71 19:12:001.6[facility] AhgkaknKEYDOIMLAG6878-28-19 19:12:000.4[facility] UsrhapjXNXTRICSLG9187-42-55 19:12:000.2[facility] Meng KBSNWSDMUM7323-48-28 19:12:000.0[facility] QofnlqcGIRCVXAMUM7967-81-09 19:12:004.4 [facility] NbtftvdQMNVGZGZMU5086-68-45 19:12:003.6[facility] HermannHEMATOLOGY 2016-06-09 19:12:006.6[facility] CdnwnwgWSALHYYLJE2618-25-54 19:12:000.emorial RbkjkbhCSKYLVJXIT4747-51-83 19:12:0024.2[facility] NxgbalaRKWPGDDCZN8655-25-84 19:12:0065.0[facility] HermannPARATHYROID JIFDNRD2869-62-15 19:12:0042.0[facility] HermannSPECIAL SPVEXJJRO5267-91-99 19:12:005.9[facility] HermannURINE AND STOOL 2016-06-09 19:12:00Negative (06/09/16 2:12 PM)[facility]annURINE AND STOOL 2016-06-09 19:12:001[facility]annURINE AND EIPLH9995-90-58 19:12:002[facility]annURINE AND TMHJQ0599-56-42 19:12:00Small *ABN*(06/09/16 2:12 PM)[facility] AND GMGHG7032-51-82 19:12:00Negative (06/09/16 2:12 PM)[facility] AND MDVFV3586-49-82 19:12:005.0[facility]annURINE AND STOOL 2016-06-09 19:12:001.020[facility]annURINE AND VOENA2507-15-05 19:12:00Clear (06/09/16 2:12 PM)[facility]annUR[facility] AND FDNDB5891-78-32 19:12:00Negative *NA*(06/09/16 2:12 PM)[facility]annUR[facility] AND UTLUA7583-63-20 19:12:00Yellow *NA*(06/09/16 2:12 PM)[facility] Meng
[2020-08-29 12:04] VITALS: O2SAT 100
[2020-08-29] MEDS: CEFOXITIN/SWI 1gm 1 GM/10 ML SYR ONE ×2 (13:45→14:20)
[2020-08-29] MEDS ORDERED: propofoL 200 MG/20 ML VIAL IV ONE (14:12)
[2020-08-29] MEDS ORDERED: FENTANYL CITR 100 MCG/2 ML ONE (14:12)
[2020-08-29] MEDS ORDERED: LIDOCAINE 1% MPF 5 ML VIAL ONE (14:13)
[2020-08-29] MEDS ORDERED: ROCURONIUM 50 MG/5 ML VIAL IV ONE ×2 (14:13→14:52)
[2020-08-29] MEDS ORDERED: MIDAZOLAM HCL 2 MG/2 ML INJ ONE (14:13)
[2020-08-29] MEDS ORDERED: GLYCOPYRROLATE 0.2 MG/ML SYR ONE ×3 (14:26→14:47)
[2020-08-29] MEDS ORDERED: ONDANSETRON 4 MG/2 ML VIAL ONE (14:46)
[2020-08-29] MEDS ORDERED: KETOROLAC 30 MG/ML INJ ONE (14:46)
[2020-08-29] MEDS ORDERED: NEOSTIGMINE 1 MG/ML -5 ML ONE (14:52)
--- NOTE | 2020-08-29 15:16 | P.BOP ---
Preoperative diagnosis: acute cholecystitis, symptomatic cholelithiasis, hx gastric bypass Postoperative diagnosis: same plus intrabdominal adhesions, umbilical hernia Primary procedure: 1. Laparoscopic cholecystectomy Secondary procedure: 2. Open repair of umbilical hernia Other procedure(s): 3. Laparoscopic lysis of adhesions Bpm Architect: Brianna Yin) Estimated blood loss: <10cc Specimen: gb Findings: as above Anesthesia: General Complications: None Transferred to: Recovery Room Condition: Good
[2020-08-29] MEDS ORDERED: MORPHINE 10 MG/ML VIAL ONE (15:25)
[2020-08-29] MEDS ORDERED: PROMETHAZINE INJ 25 MG/ML AMP ONE (16:11)
[2020-08-29] MEDS ORDERED: HYDROMORPHONE HCL 1 MG/ML INJ ONE (16:12)
[2020-08-29 16:42] VITALS: BP 102/61; TEMP 97.3
[2020-08-29] MEDS ORDERED: HYDROCODONE/APAP 5/325 MG TAB ONE (17:00)
--- NOTE | 2020-08-29 22:37 | OP ---
Date of Procedure: 08/29/2020 Surgeon: Bret Bryan MD Sewer Separation Designer: ZAINAB Bernal. Preoperative Diagnoses: Acute cholecystitis, symptomatic cholelithiasis, history of gastric bypass, Jayjay-en-Y. Postoperative Diagnoses: Acute cholecystitis, symptomatic cholelithiasis, history of gastric bypass Jayjay-en-Y, intraabdominal adhesions and umbilical hernia. Procedures: 1.Laparoscopic cholecystectomy. 2.Open repair of umbilical hernia. 3.Laparoscopic lysis of adhesions. Estimated Blood Loss: Less than 10 mL. Specimen: Gallbladder and hernia sac. Findings: The patient has multiple intraabdominal adhesions. This patient has history of Jayjay-en-Y gastric bypass. The patient also has inflamed and thickened gallbladder and also have an umbilical h ernia with incarcerated omentum. Anesthesia: General plus local. Indications: This is the case of a 45-year-old patient with recurrent epigastric right upper quadran t pain radiating to the back, consistent with acute cholecystitis, symptomatic cholelithiasis. The p atient has a history of gastric bypass in the past. The benefits, alternatives, and risks of laparos copic possible open cholecystectomy fully explained which include, but not limited to infection, blee ding, damage to adjacent structures, anesthesia complication, choledocholithiasis, bile leak, pancrea titis, PR, and even . He also understands this may not relieve the symptoms. He might need mor e than one surgical intervention. He understood and signed a consent. Procedure In Detail: The patient was brought to the operating room and placed in supine position. A nesthesia was done without complication. Abdominal area was prepped and draped in a sterile fashion. Marcaine 0.5% was injected for local anesthetic followed by sharp incision of the skin in the infra umbilical region. Incision was carried down to fascia. We noticed the patient to have an incarcerat ed umbilical hernia. Hernia sac was opened, noticed incarcerated omentum, partially resected. The o mentum was checked with no bleeding, ligated and sent back to the abdominal cavity after fully inspec veto. Hernia sac was removed. Vicryl #1 placed inside the fascia. Jerald trocar was carefully. Pne umoperitoneum was obtained. I placed 3 more trocars, 5 mm each one of them, in the right upper quadr ant using direct visualization. The gallbladder was distended, multiple adhesions to it. We careful ly removed those adhesions with using Endo Briseyda connected to Bovie cauterizer. We also noticed dis tended gallbladder, so have to be deflated with the Endo needle under direct visualization. Grasper was placed in the fundus of the gallbladder, another grasper in the infundibulum retracting the gallb ladder in the inferolateral fashion exposing the triangle of Calot and obtaining critical view. The cystic duct and cystic artery were clearly isolated free circumferentially and a connection between t hose and the gallbladder were clearly identified. I proceeded to ligate those by using at least 3 cl ips proximal, 1 clip distal, ligation in the middle. Same was done with the cystic artery. No bile leak. No bleeding. The gallbladder was removed from liver using Bovie cauterizer and removed from a bdominal cavity using EndoCatch through an umbilical incision. The area was inspected once again. W e have to mention that in order for us to remove the gallbladder through the belly bottom, we have to even extend the incision due to the size of this gallbladder. We obtained pneumoperitoneum once aga in. Inspect the area, clips were intact. After irrigation and suction, clips were intact. No bile leak. No bleeding. At that moment, I proceeded to remove the trocars under direct vision, deflated pneumoperitoneum, closed the fascia using #1 Vicryl, irrigated the subcutaneous tissue, closed with 3 -0 chromic and closed the hernia with a #1 Vicryl with multiple jrtxuc-xi-gimmi fashion. A 3-0 chrom ic was used to close the subcutaneous tissue and then the skin in a subcuticular fashion with 3-0 chr omic and Steri-Strips on top. Sponge count and instrument count were correct. The patient tolerated the procedure well. The patient was sent to Recovery in stable condition. KARYNA/MARCY Voice ID: [id number] Report ID: [id number]
--- NOTE | 2020-08-29 22:37 | DS ---
Date of Discharge: 08/29/2020 Diagnoses: Acute cholecystitis, symptomatic cholelithiasis, multiple intraabdominal adhesions, and u mbilical hernia. Procedures: Laparoscopic cholecystectomy, repair of umbilical hernia, and lysis of adhesions. Disposition: Home. Activity: As tolerated. No heavy lifting. Plan: Follow up in my office in 1 week. Call for appointment at [phone]. Discharge Medications And Instructions: Include hydrocodone q.4 hours p.r.n. pain, Bactrim DS p.o. b .i.d., and Zofran p.o. q.6 hours p.r.n. nausea. Keep the area dry for 48 hours, then may shower. No heavy lifting, no more than 20 pounds. KARYNA/MARCY Voice ID: [id number] Report ID: [id number]
== END 2020-08-29 17:20 | disposition home or self-care (01) ==
LOC: OR 11:30
PROVIDERS: ATTEND Surgery
PROC: 0WQF0ZZ Repair Abdominal Wall, Open Approach (ICD-10-PCS; 2020-08-29)
PROC: 0FT44ZZ Resection of Gallbladder, Percutaneous Endoscopic Approach (ICD-10-PCS; principal; 2020-08-29 12:30)
DX: K80.10 Calculus of gallbladder with chronic cholecystitis without obstruction (principal); K42.0 Umbilical hernia with obstruction, without gangrene; E66.01 Morbid (severe) obesity due to excess calories; Z20.828 Contact with and (suspected) exposure to other viral communicable diseases
CPT/HCPCS: 93005; 85025; 80048; 36415; 82150; 80076; 88302; 88304; 83690; 71046; 47562; 49587; U0002; J2704; J2550; J2250; J3010; J1170; J2710; J7120; J2405

== ENCOUNTER 2023-03-11 06:28 | Day surgery (SDC) | payer BC, OTHER ==
[2023-03-09 14:37] LABS: Absolute Lymphocytes (CBC) 1.2 K/uL (0.7-4.9); Hematocrit 37.6 % (39.6-49.0); Lymphocytes % 19.1 % (15.3-44.8); MCV 74.7 fL (80-100); MPV 6.8 fL (7.6-11.3); RBC Red Blood Cell Count 5.03 M/uL (4.33-5.43)
--- NOTE | 2023-03-09 15:49 | RAD REPORT ---
EXAM DESCRIPTION: Justo Kim (2 Views)03/09/2023 2:33 pm CLINICAL HISTORY: Preop for hemorrhoid surgery COMPARISON: 2019 FINDINGS: The lungs appear clear of acute infiltrate. The heart is normal size IMPRESSION: No acute abnormalities displayed
--- NOTE | 2023-03-10 11:36 | EKG ---
Test Date: 2023-03-09 Test Time: 14:18:52 Truck Driver Teamster: CD MEASUREMENT RESULTS: Intervals: Rate: 57 AL: 166 QRSD: 106 QT: 430 QTc: 418 [place]: P: 23 AL: 166 QRS: 71 T: 5 INTERPRETIVE STATEMENTS: Sinus bradycardia Otherwise normal ECG Compared to ECG 08/27/2020 14:56:39 No significant changes Electronically Signed On 03-10-23 11:36:34 CDT by Rios Berumen
[2023-03-11] MEDS ORDERED: NA CHLORIDE 0.9% 1,000 ML ONE (06:45)
[2023-03-11] MEDS ORDERED: propofoL 200 MG/20 ML VIAL IV ONE (07:04)
[2023-03-11] MEDS ORDERED: MIDAZOLAM HCL 2 MG/2 ML INJ ONE (07:04)
[2023-03-11] MEDS ORDERED: LIDOCAINE 2% MPF 5 ML VIAL ONE (07:05)
[2023-03-11] MEDS ORDERED: FENTANYL CITR 100 MCG/2 ML ONE ×2 (07:05→08:02)
[2023-03-11] MEDS ORDERED: ONDANSETRON 4 MG/2 ML VIAL ONE (07:09)
[2023-03-11] MEDS: CEFOXITIN SODIUM 1 GM/VIAL ONE ×3 (07:13→07:30)
[2023-03-11] MEDS ORDERED: GLYCOPYRROLATE 0.2 MG/ML SYR ONE (07:36)
[2023-03-11] MEDS ORDERED: EPHEDRINE SULF 50 MG/ML VIAL ONE (07:38)
--- NOTE | 2023-03-11 08:19 | P.OP ---
Date of Service: 03/11/23 Preop diagnosis: Thrombosed hemorrhoid Postop diagnosis: Same Procedure performed: Examiner anesthesia, rigid proctoscopy, hemorrhoidectomy Surgeon: Danial Cervantes MD Employment Officer: None Estimated blood loss: Minimal Specimen: Thrombosed hemorrhoid Findings: Right posterior thrombosed hemorrhoid Anesthesia: General Complications: None Drains: None Fluids and blood products: Nonapplicable Disposition: Recovery room Operative note: Patient brought to the OR and placed in the supine position. General anesthesia begun. Patient placed in the lithotomy position and prepped and draped in usual sterile fashion. Exam under anesthesia revealed a right posterior thrombosed hemorrhoid. Proctoscopy did not reveal any other evidence of disease. Harmonic scalpel used to excise the thrombosed hemorrhoid in the standard fashion. Bleeding controlled with cautery. Marcaine 0.5% infiltrated locally for postop pain control. Sterile dressing applied. Patient awakened and taken to recovery room in good general condition. CC: Dr. Bergman's office
[2023-03-11] MEDS ORDERED: HYDROCODONE/APAP 7.5/325 MG TAB PO PRN (08:23)
[2023-03-11 08:42] VITALS: O2SAT 97
[2023-03-11] MEDS ORDERED: HYDROCODONE/APAP 7.5/325 MG TAB ONE (09:15)
[2023-03-11 09:36] VITALS: BP 121/80; TEMP 98.2
== END 2023-03-11 10:05 | disposition home or self-care (01) ==
LOC: OR 06:28
PROVIDERS: ATTEND Surgery
PROC: 0DJD8ZZ Inspection of Lower Intestinal Tract, Via Natural or Artificial Opening Endoscopic (ICD-10-PCS; 2023-03-11)
PROC: 06BY0ZC Excision of Hemorrhoidal Plexus, Open Approach (ICD-10-PCS; principal; 2023-03-11 07:30)
DX: K64.5 Perianal venous thrombosis (principal); E11.9 Type 2 diabetes mellitus without complications; R00.1 Bradycardia, unspecified; M19.90 Unspecified osteoarthritis, unspecified site
CPT/HCPCS: 93005; 85025; 80048; 36415; 82947 ×2; 88304; 71046; 46999; 45300; J2704; J2001; J2250; J3010 ×2; J0694; J2405; J7030